=== PATIENT | female | born 1980 | race Caucasian/White ===

== ENCOUNTER → 2017-09-09 | Outpatient (CLI) | payer BC ==
--- NOTE | 2017-09-09 21:33 | MR ---
EXAMINATION TYPE: MR lumbar spine wo con DATE OF EXAM: 09/09/2017 COMPARISON: NONE HISTORY: LBP, LLE radiculopathy x 3 months TECHNIQUE: Multiplanar, multisequence images of the lumbar spine were acquired. L1-L2: Normal disc appearance without desiccation. No herniation, protrusion or disc bulging. No ca nal stenosis is present. Foramina are patent bilaterally. L2-L3: Normal disc appearance without desiccation. No herniation, protrusion or disc bulging. No ca nal stenosis is present. Foramina are patent bilaterally. L3-L4: Normal disc appearance without desiccation. No herniation, protrusion or disc bulging. No ca nal stenosis is present. Foramina are patent bilaterally. L4-L5: Facet arthropathy with hypertrophy of the ligamentum flavum is present causing some encroachme nt on the right lateral recess is present, there is a small focus of intermediate signal on T1-weight ed images, increased signal centrally with peripheral low signal on T2-weighted sequences measuring a pproximately 7 mm extending medially from the facet on the left causing some mass effect on the later al aspect of the thecal sac and possibly the left L4 nerve root. L5-S1: Facet arthropathy, some hypertrophic change may encroach on the foramina. No significant centr al stenosis or disc herniation. Lumbar segments are intact. No paraspinal masses are identified. Conus medullaris has a normal appe arance. Lumbar vertebral bodies show preserved height and alignment. Minimal spondylosis is present. IMPRESSION: Facet arthropathy with probable synovial cyst on the left at L4-5 causing mass effect as described, c orrelate for left L4 radiculopathy.
== END | disposition home or self-care (01) ==
LOC: RADMRIMAIN 20:07
PROVIDERS: ATTEND Family Medicine
DX: M46.96 Unspecified inflammatory spondylopathy, lumbar region (principal)
CPT/HCPCS: 72148

== ENCOUNTER → 2020-03-20 | Outpatient (CLI) | payer BC ==
[2020-03-20 14:33] VITALS: BP 112/67; PULSE 73; RESP 16; TEMP 98.3; BMI 41.5
--- NOTE | 2020-03-20 14:54 | P.HPBAR ---
Bariatric H&P - History & Physicial H&P Date: 03/20/20 History & Physicial: Visit/CC: Initial Visit Patient initial contact: Initial weight: 102.058 kg Initial weight in pounds: 225.00 Height: 5 ft 1.75 in Initial BMI: 41.5 Last weight: Current weight: 102.058 kg Current weight in pounds: 225.00 Current BMI: 41.5 [place] body weight (based on NIH guidelines): 49.328 kg Excess body weight loss: 0.0% The patient is a 39 year-old F who presents for Bariatric Assessment. [facility] [place] Past history of smoking DATE OF SERVICE: 03/20/2020 REASON FOR CONSULTATION: Initial bariatric evaluation. HISTORY OF PRESENT ILLNESS: Lexii Hunter is a 40-year-old female who comes with lifelong morbid obesity. She comes in looking into the sleeve gastrectomy. She has tried Adipex, Keto for weight loss. She cannot exercise due to her back pain of L4 to L5 with compression. She can only do walking. She used to lift weights. She is supposed to have a fusion for her neck. She has cysts along her spine. She has lost 40 to 50 pounds with Keto diet. Her highest weight is at present. She has hip pain bilaterally. She denies knee problems. She has both ankle and foot pain. She still has her gallbladder. She has gastroesophageal reflux disease and takes [id number] prilosec for gastroesophageal reflux disease. She can miss a few days of her omeprazole without problems. She denies stomach or esophageal cancer. No reports of chronic diarrhea. She had deep venous thrombosis in the left arm from control. She denies easy bruising or bleeding. When she had her son, she had a stroke when he was born. She was tested for hypercoagulopathy disorder. She denies surgeries to the abdomen. At height of 5 feet 1.75 inches, her ideal body weight is 131 pounds. She comes in 225 pounds. Her body mass index is 41.5 She is 94 pounds overweight. PAST MEDICAL HISTORY: 1. Morbid obesity due to excess calories 2. Body mass index of 41.5, initial 3. Osteoarthritis of the ankle. 4. Osteoarthritis of the lower back. 5. Depressive disorder 6. Gastroesophageal reflux disease 7. Past deep venous thrombosis of the arm 8. Transient ischemic attack 9. Generalized anxiety disorder 10. Depressive disorder PAST SURGICAL HISTORY: 1. Uterine ablation 2. Carpal tunnel surgery 3. Denies abdominal surgery HOME MEDICATIONS: Home Medications Medication Instructions Recorded Confirmed DULoxetine HCL [Cymbalta] 30 mg PO DAILY 04/05/16 04/05/16 Omeprazole [PriLOSEC] 20 mg PO DAILY 04/05/16 04/05/16 Previous Rx's Medication Instructions Recorded Ondansetron HCl [Zofran Oral Soln] 4 mg PO TID #120 ml 04/05/16 ALLERGIES: Allergies Allergy/AdvReac Type Severity Reaction Status Date / Time hydrocodone AdvReac Nausea & Verified 04/05/16 06:48 Vomiting SOCIAL HISTORY: Past tobacco use. FAMILY HISTORY: No family history of ulcerative colitis disease or Crohn's disease. Family history of morbid obesity. No lupus in the family. No reports of stomach or esophageal cancer. REVIEW OF ORGAN SYSTEMS: CONSTITUTIONAL: At height of 5 feet 1.75 inches, her ideal body weight is 131 pounds. She comes in 225 pounds. Her body mass index is 41.5 She is 94 pounds overweight. HEENT: Denies any active troubles with vision or hearing. ENDOCRINE: No diabetes. No hypothyroidism. CARDIOVASCULAR: No past reports of palpitations or heart attacks or chest pain. RESPIRATORY: Has daytime somnolence. No asthma. GASTROINTESTINAL: Denies any bright red blood per rectum. No diarrhea. No constipation. MUSCULOSKELETAL: Has lower back pain and joint pain. Has osteoarthritis of the knees. NEURO: No headaches. No seizure disorders. Past stroke during . PSYCH: Has depression. No suicidal ideation. As anxiety RHEUMATOLOGIC: No lupus. No rheumatoid arthritis. HEMATOLOGIC: Denies any abnormal bleeding or bruising. Past personal history of DVTs. SKIN: No rash. No skin cancer. PHYSICAL EXAM: VITAL SIGNS: Height 5 foot 1.75 inches, weight 225 pounds. BMI 41.5 Vital Signs Temp 98.3 F 03/20/20 14:28 Pulse 73 03/20/20 14:28 Resp 16 03/20/20 14:28 BP 112/67 03/20/20 14:28 Pulse Ox GENERAL: Well-developed in no acute distress. HEENT: No scleral icterus. Extraocular movements grossly intact. Hears conversational speech. No nasal drainage. NECK: Supple without lymphadenopathy. CHEST: Nonlabored respirations with equal bilateral excursions. CARDIOVASCULAR: Regular rate and regular rhythm. Distal 2+ pulses. ABDOMEN: Obese, soft, nontender, nondistended. MUSCULOSKELETAL: No clubbing, cyanosis. NEURO: No focal or lateralizing signs. Cranial nerves 2 through 12 grossly within normal limits. PSYCH: Appropriate affect. Alert and oriented to person, place and time. SKIN: Good skin turgor. Well perfused. ASSESSMENT: 1. Morbid obesity due to excess calories 2. Body mass index of 41.5, initial 3. Osteoarthritis of the ankle. 4. Osteoarthritis of the lower back. 5. Depressive disorder 6. Gastroesophageal reflux disease 7. Past deep venous thrombosis of the arm 8. Transient ischemic attack 9. Generalized anxiety disorder 10. Depressive disorder PLAN: 1. Surgical options including a band, gastric bypass, sleeve gastrectomy were described in detail. Alternatives such as gastric balloon including duodenal switch were described. She is looking into the sleeve gastrectomy. 2. The [place] bariat[facility] surgical collaborative data and outcomes calculator were described with surgical options. 3. Recommend a bariatric metabolic panel to evaluate for micro- including macronutrient deficiencies. 4. For history of daytime somnolence, recommend evaluation and treatment for sleep apnea. 5. Dietary surveillance and counseling was reviewed. Increased protein intake over 65 grams daily advised. 6. Will need cardiac risk assessment. 7. Recommend medical risk assessment. 8. Psych assessment per insurance guidelines. 9. Recommend upper endoscopy. 10. Recommend 12-lead EKG. Thank you for this consultation. Past Medical History Past Medical History: No Reported History Additional Past Medical History / Comment(s): HX OF BLOOD CLOT IN ARM History of Any Multi-Drug Resistant Organisms: None Reported Past Surgical History: Uterine Ablation Additional Past Surgical History / Comment(s): CARPAL TUNNEL Smoking Status: Never smoker Surgical - Exam Vital Signs Temp Pulse Resp BP 98.3 F 73 16 112/67 03/20/20 14:28 03/20/20 14:28 03/20/20 14:28 03/20/20 14:28 Bariatric Checklist Checklist: Plan: Checklist: EGD: 1. Hiatal hernia: 2. H. Pylori: HgbA1c: Vitamin D: Smoking: Never smoker Primary care physician referral: Dr. Chu Psychiatry clearance: Cardiology clearance: Sleep study: Diet journal: VTE risk score: VTE risk level: Rehab needs at discharge:
== END | disposition home or self-care (01) ==
LOC: BARWHC3 13:50
PROVIDERS: ATTEND Surgery Plastic and Reconstructive Surgery
DX: E66.01 Morbid (severe) obesity due to excess calories (principal); F32.9 Major depressive disorder, single episode, unspecified; K21.9 Gastro-esophageal reflux disease without esophagitis; M19.079 Primary osteoarthritis, unspecified ankle and foot; Z86.73 Personal history of transient ischemic attack (TIA), and cerebral infarction without residual deficits; F41.9 Anxiety disorder, unspecified; M47.819 Spondylosis without myelopathy or radiculopathy, site unspecified
CPT/HCPCS: 99211

== ENCOUNTER → 2020-03-21 | Outpatient (CLI) | payer BC ==
[2020-03-21 10:34] LABS: HCT 42.2 % (34.0-46.0); HGB 13.8 gm/dL (11.4-16.0); MCH 29.8 pg (25.0-35.0); MCHC 32.7 g/dL (31.0-37.0); MCV 91.1 fL (80.0-100.0); Mean Platelet Volume 6.9; Platelet Count 262 k/uL (150-450); RBC 4.63 m/uL (3.80-5.40); RDW 12.7 % (11.5-15.5); WBC 8.2 k/uL (3.8-10.6)
[2020-03-21 10:47] LABS: African American GFR (CKD) >90 (>60 ml/min/1.73 sqM); Albumin 4.5 g/dL (3.5-5.0); Anion Gap 10 mmol/L; Blood Urea Nitrogen 10 mg/dL (7-17); Calcium 9.2 mg/dL (8.4-10.2); Carbon Dioxide 24 mmol/L (22-30); Chloride 104 mmol/L (98-107); Cholesterol 199 mg/dL (<200); Glucose 83 mg/dL (74-99); Non-African American GFR(CKD) >90 (>60 ml/min/1.73 sqM); Phosphorus 3.3 mg/dL (2.5-4.5); Potassium 4.5 mmol/L (3.5-5.1); Sodium 138 mmol/L (137-145); Total Bilirubin 0.5 mg/dL (0.2-1.3); Total Protein 7.6 g/dL (6.3-8.2); Triglycerides 167 mg/dL (<150)
[2020-03-21 10:48] LABS: ALT 22 U/L (4-34); AST 23 U/L (14-36); Alkaline Phosphatase 66 U/L (38-126); HDL Cholesterol 61 mg/dL (40-60); LDL Cholesterol,Calculated 105 mg/dL (0-99); Magnesium 1.8 mg/dL (1.6-2.3)
[2020-03-21 11:00] LABS: Partial Thromboplastin Time 25.3 sec (22.0-30.0); Prothrombin Time 10.2 sec (9.0-12.0)
[2020-03-21 16:48] LABS: % Iron Saturation 29.81 (12.00-45.00)
[2020-03-21 21:34] LABS: Hemoglobin A1C 5.7 % (4.0-6.0)
[2020-03-22 12:13] LABS: Ferritin 253.8 ng/mL (10.0-291.0)
[2020-03-22 13:18] LABS: Zinc, Serum 102 ug/dL (60-130)
[2020-03-22 13:24] LABS: Folate, Serum 21.3 ng/mL
[2020-03-25 08:46] LABS: Vitamin A 52 ug/dL (38-106)
[2020-03-25 11:29] LABS: Vit B1(Thiamine) 67 ug/L (38-122)
[2020-03-26 19:47] LABS: Selenium 113 mcg/L (63-160)
== END | disposition home or self-care (01) ==
LOC: LABPAT 08:43
PROVIDERS: ATTEND Surgery Plastic and Reconstructive Surgery
DX: E21.1 Secondary hyperparathyroidism, not elsewhere classified (principal); D50.9 Iron deficiency anemia, unspecified; K90.9 Intestinal malabsorption, unspecified; E55.9 Vitamin D deficiency, unspecified; K74.1 Hepatic sclerosis; N19 Unspecified kidney failure; K50.90 Crohn's disease, unspecified, without complications; Z01.810 Encounter for preprocedural cardiovascular examination
CPT/HCPCS: 80053; 80061; 82306; 82525; 82607; 82728; 82746; 83036; 83540; 83550; 83735; 83970; 84100; 84134; 84255; 84425; 84443; 84590; 84630; 85027; 85610; 85730; 93005

== ENCOUNTER 2020-05-29 07:44 | Day surgery (SDC) | payer BC ==
[2020-05-24 10:04] VITALS: BMI 38.9
[~2020-05-29 07:44] MED LIST: LACTATED RINGERS 1,000 ML IV SCH
[2020-05-29 08:13] VITALS: RESP 16; TEMP 98.4
[2020-05-29] MEDS ORDERED: LIDOCAINE 1% (10MG/ML) FOR IV START INTRADERMA ONE (08:25)
--- NOTE | 2020-05-29 08:49 | P.GSHP ---
History of Present Illness H&P Date: 05/29/20 CHIEF COMPLAINT: GERD HISTORY OF PRESENT ILLNESS: The patient is a 40-year-old female who presents reports gastroesophageal reflux disease. Upper endoscopy was offered for further evaluation and management. PAST MEDICAL HISTORY: Please see list. PAST SURGICAL HISTORY: Please see list. MEDICATIONS: Please see list. ALLERGIES: Please see list. SOCIAL HISTORY: No illicit drug use FAMILY HISTORY: No reports of Crohn disease or ulcerative colitis. REVIEW OF ORGAN SYSTEMS: CONSTITUTIONAL: No reports of fevers or chills. GI: Denies any blood in stools or constipation. PHYSICAL EXAM: VITAL SIGNS: Stable GENERAL: Well-developed and pleasant in no acute distress. HEENT: No scleral icterus. Extraocular movements grossly intact. Moist buccal mucosa. NECK: Supple without lymphadenopathy. CHEST: Unlabored respirations. Equal bilateral excursions. CARDIOVASCULAR: Regular rate and rhythm. Distal 2+ pulses. ABDOMEN: Soft, nondistended. MUSCULOSKELETAL: No clubbing, cyanosis, or edema. ASSESSMENT: 1. Gastroesophageal reflux disease PLAN: 1. Recommend proceeding with an upper endoscopy Past Medical History Past Medical History: GERD/Reflux Additional Past Medical History / Comment(s): HX OF BLOOD CLOT IN Left ARM- states r/t control History of Any Multi-Drug Resistant Organisms: None Reported Past Surgical History: Back Surgery, Uterine Ablation Additional Past Surgical History / Comment(s): CARPAL TUNNEL,laminectomy l4-l5 Past Anesthesia/Blood Transfusion Reactions: Postoperative Nausea & Vomiting (PONV) Additional Past Anesthesia/Blood Transfusion Reaction / Comment(s): no hx blood transfusion Smoking Status: Former smoker - Past Family History Mother Family Medical History: No Reported History Medications and Allergies Home Medications Medication Instructions Recorded Confirmed Type Omeprazole [PriLOSEC] 20 mg PO DAILY 04/05/16 05/29/20 History Gabapentin 600 mg PO HS 05/24/20 05/29/20 History Gabapentin [Neurontin] 100 mg PO QAM 05/24/20 05/29/20 History ISOtretinoin [Isotretinoin] 40 mg PO HS 05/24/20 05/29/20 History L-Lysine(Unknown Dose) 1 tab PO DAILY 05/24/20 05/24/20 History Liraglutide [Saxenda] 3 mg SQ DAILY 05/24/20 05/29/20 History Multivitamins, Thera [Multivitamin 1 tab PO DAILY 05/24/20 05/29/20 History (formulary)] Vitamin C(Unk Dose) 1 tab PO DAILY 05/24/20 05/29/20 History Vortioxetine Hydrobromide 10 mg PO QAM 05/24/20 05/29/20 History [Trintellix] Allergies Allergy/AdvReac Type Severity Reaction Status Date / Time hydrocodone AdvReac Nausea & Verified 05/29/20 08:14 Vomiting Surgical - Exam Vital Signs Temp Pulse Resp BP Pulse Ox 98.4 F 81 16 132/77 99 05/29/20 08:09 05/29/20 08:09 05/29/20 08:09 05/29/20 08:09 05/29/20 08:09
[2020-05-29] MEDS ORDERED: PROPOFOL 10 MG/ML 20 ML VIAL IV ONE (08:56)
--- NOTE | 2020-05-29 09:19 | P.PCN ---
Date of Procedure: 05/29/20 Description of Procedure: PREOPERATIVE DIAGNOSIS: Gastroesophageal reflux disease. Morbid obesity. POSTOPERATIVE DIAGNOSIS: Morbid obesity. Gastritis. Gastroesophageal reflux disease. Gastric ulcers OPERATION: Esophagogastroduodenoscopy with biopsies along antrum. SURGEON: Roseanna Mojica MD ANESTHESIA: MAC. INDICATIONS: The patient is a 40-year-old female who presents with a history of reflux disease. Benefits and risks of the procedure were described. Informed consent was obtained. DESCRIPTION: The patient was brought into the endoscopy suite and laid in the left lateral decubitus position. An Olympus gastroscope was passed along the posterior oropharynx down to the distal esophagus where the squamocolumnar junction was encountered at 35 cm from the incisors. The stomach was entered and no bile reflux was found. Additional findings are listed below. Biopsies with cold forceps were obtained of the antrum. The first through third portion of the duodenum was examined and unremarkable. Retroflexion of the scope confirmed Hill grade 2 lower esophageal valve. The squamocolumnar junction demonstrated LA grade B erosive esophagitis. The stomach was desufflated. The patient tolerated the procedure well. FINDINGS: Squamocolumnar junction 35 cm from the incisors. Diaphragmatic hiatus at 35 cm. Hill grade 2 lower esophageal valve. LA grade B erosive esophagitis. No active duodenitis. Chronic gastritis with superficial gastric ulcers RECOMMENDATIONS: Upper endoscopy as needed. Increase omeprazole to 40 mg daily Plan - Discharge Summary Discharge Rx Participant: No New Discharge Prescriptions: New Omeprazole [PriLOSEC] 40 mg PO DAILY #30 cap Continue Multivitamins, Thera [Multivitamin (formulary)] 1 tab PO DAILY ISOtretinoin [Isotretinoin] 40 mg PO HS Gabapentin [Neurontin] 100 mg PO QAM Gabapentin 600 mg PO HS Vortioxetine Hydrobromide [Trintellix] 10 mg PO QAM Liraglutide [Saxenda] 3 mg SQ DAILY Vitamin C(Unk Dose) 1 tab PO DAILY L-Lysine(Unknown Dose) 1 tab PO DAILY Discontinued Omeprazole [PriLOSEC] 20 mg PO DAILY Discharge Medication List Gabapentin 600 mg PO HS 05/24/20 [History] Gabapentin [Neurontin] 100 mg PO QAM 05/24/20 [History] ISOtretinoin [Isotretinoin] 40 mg PO HS 05/24/20 [History] L-Lysine(Unknown Dose) 1 tab PO DAILY 05/24/20 [History] Liraglutide [Saxenda] 3 mg SQ DAILY 05/24/20 [History] Multivitamins, Thera [Multivitamin (formulary)] 1 tab PO DAILY 05/24/20 [History] Vitamin C(Unk Dose) 1 tab PO DAILY 05/24/20 [History] Vortioxetine Hydrobromide [Trintellix] 10 mg PO QAM 05/24/20 [History] Omeprazole [PriLOSEC] 40 mg PO DAILY #30 cap 05/29/20 [Rx] Follow up Appointment(s)/Referral(s): Roseanna Mojica MD [STAFF PHYSICIAN] [facility] [place] [facility] [place] - 06/12/20 Patient Instructions/Handouts: *Surgery [facility] - (Anesthesia) Endoscopy Discharge Instructions, Upper Endoscopy (GEN) Discharge Disposition: HOME SELF-CARE
[2020-05-29 09:21] VITALS: BP 103/64; PULSE 72
== END 2020-05-29 09:43 | disposition home or self-care (01) ==
LOC: ORWHC2ENDO 07:44
PROVIDERS: ATTEND Surgery Plastic and Reconstructive Surgery
DX: K25.9 Gastric ulcer, unspecified as acute or chronic, without hemorrhage or perforation (principal); K29.50 Unspecified chronic gastritis without bleeding; K21.9 Gastro-esophageal reflux disease without esophagitis; E66.01 Morbid (severe) obesity due to excess calories; Z68.39 Body mass index [BMI] 39.0-39.9, adult; F32.9 Major depressive disorder, single episode, unspecified; Z86.718 Personal history of other venous thrombosis and embolism; Z98.890 Other specified postprocedural states; Z87.891 Personal history of nicotine dependence; Z79.84 Long term (current) use of oral hypoglycemic drugs; Z79.899 Other long term (current) drug therapy; Z88.5 Allergy status to narcotic agent; K22.10 Ulcer of esophagus without bleeding
CPT/HCPCS: 81025; 88305; 43239; J2704

== ENCOUNTER → 2020-08-05 | Outpatient (CLI) | payer BC ==
[2020-08-05 13:27] VITALS: BMI 39.4
== END | disposition home or self-care (01) ==
LOC: BARWHC3 08:49
PROVIDERS: ATTEND Surgery Plastic and Reconstructive Surgery
DX: E66.01 Morbid (severe) obesity due to excess calories (principal); Z71.3 Dietary counseling and surveillance
CPT/HCPCS: 97804

== ENCOUNTER → 2020-08-28 | Outpatient (CLI) | payer BC ==
[2020-08-28 15:53] VITALS: BP 119/85; PULSE 81; RESP 16; TEMP 98.8
--- NOTE | 2020-08-28 16:02 | P.PN ---
Subjective Progress Note Date: 08/28/20 DATE OF SERVICE: 08/28/2020 CHIEF COMPLAINT: Morbid obesity HISTORY OF PRESENT ILLNESS: Lexii Hunter is a 40-year-old female who comes with lifelong morbid obesity. She comes in looking into the sleeve gastrectomy. She has completed a medical supervised weight loss. As a result of her morbid obesity, she has developed comorbidities including osteoarthritis of the ankle, lower back as well as depressive disorder. She does report new left shoulder pain where she has torn cartilage and is also pending surgery. As a result of her morbid obesity, she is looking into permanent solutions with surgical weight loss. At height of 5 feet 1.75 inches, her ideal body weight is 131 pounds. She comes in 213 pounds from 225 pounds, 5 months ago. She has lost 12 pounds from medical supervised weight loss. Her body mass index was 41.5 She was 94 pounds overweight. PAST MEDICAL HISTORY: 1. Morbid obesity due to excess calories 2. Body mass index of 41.5, initial 3. Osteoarthritis of the ankle. 4. Osteoarthritis of the lower back. 5. Depressive disorder 6. Gastroesophageal reflux disease 7. Past deep venous thrombosis of the arm 8. Transient ischemic attack 9. Generalized anxiety disorder 10. Depressive disorder PAST SURGICAL HISTORY: 1. Uterine ablation 2. Carpal tunnel surgery 3. Denies abdominal surgery HOME MEDICATIONS: Home Medications Medication Instructions Recorded Confirmed DULoxetine HCL [Cymbalta] 30 mg PO DAILY 04/05/16 04/05/16 Omeprazole [PriLOSEC] 20 mg PO DAILY 04/05/16 04/05/16 Previous Rx's Medication Instructions Recorded Ondansetron HCl [Zofran Oral Soln] 4 mg PO TID #120 ml 04/05/16 ALLERGIES: Allergies Allergy/AdvReac Type Severity Reaction Status Date / Time hydrocodone AdvReac Nausea & Verified 04/05/16 06:48 Vomiting SOCIAL HISTORY: Past tobacco use. FAMILY HISTORY: No family history of ulcerative colitis disease or Crohn's disease. Family history of morbid obesity. No lupus in the family. No reports of stomach or esophageal cancer. REVIEW OF ORGAN SYSTEMS: CONSTITUTIONAL: At height of 5 feet 1.75 inches, her ideal body weight is 131 pounds. She comes in 225 pounds. Her body mass index is 41.5 She is 94 pounds overweight. HEENT: Denies any active troubles with vision or hearing. ENDOCRINE: No diabetes. No hypothyroidism. CARDIOVASCULAR: No past reports of palpitations or heart attacks or chest pain. RESPIRATORY: Has daytime somnolence. No asthma. GASTROINTESTINAL: Denies any bright red blood per rectum. No diarrhea. No constipation. MUSCULOSKELETAL: Has lower back pain and joint pain. Has osteoarthritis of the knees. NEURO: No headaches. No seizure disorders. Past stroke during . PSYCH: Has depression. No suicidal ideation. As anxiety RHEUMATOLOGIC: No lupus. No rheumatoid arthritis. HEMATOLOGIC: Denies any abnormal bleeding or bruising. Past personal history of DVTs. SKIN: No rash. No skin cancer. PHYSICAL EXAM: VITAL SIGNS: Height 5 foot 1.75 inches, weight 213 pounds. Vital Signs Temp 98.8 F 08/28/20 15:45 Pulse 81 08/28/20 15:45 Resp 16 08/28/20 15:45 BP 119/85 08/28/20 15:45 Pulse Ox GENERAL: Well-developed in no acute distress. HEENT: No scleral icterus. Extraocular movements grossly intact. Hears conversational speech. No nasal drainage. NECK: Supple without lymphadenopathy. CHEST: Nonlabored respirations with equal bilateral excursions. CARDIOVASCULAR: Regular rate and regular rhythm. Distal 2+ pulses. ABDOMEN: Obese, soft, nontender, nondistended. MUSCULOSKELETAL: No clubbing, cyanosis. NEURO: No focal or lateralizing signs. Cranial nerves 2 through 12 grossly within normal limits. PSYCH: Appropriate affect. Alert and oriented to person, place and time. SKIN: Good skin turgor. Well perfused. LABS: Reviewed. Triglycerides mildly elevated 165. Vitamin D level 24.6. EKG: Borderline. EGD FINDINGS: Squamocolumnar junction 35 cm from the incisors. Diaphragmatic hiatus at 35 cm. Hill grade 2 lower esophageal valve. LA grade B erosive esophagitis. No active duodenitis. Chronic gastritis with superficial gastric ulcers Final Pathologic Diagnosis GASTRIC ANTRUM, BIOPSY: Essentially normal gastric mucosa. Helicobacter organisms are not identified on routine H+E stained sections. ASSESSMENT: 1. Morbid obesity due to excess calories 2. Body mass index of 41.5, initial 3. Osteoarthritis of the ankle. 4. Osteoarthritis of the lower back. 5. Depressive disorder 6. Gastroesophageal reflux disease 7. Past deep venous thrombosis of the arm 8. Transient ischemic attack 9. Generalized anxiety disorder 10. Depressive disorder PLAN: 1. Bariatric options between a sleeve, band and a Irwin-en-Y gastric bypass were reviewed in detail. The patient elected for a sleeve gastrectomy. Robotic assisted approach described. 2. The [place] [facility] Data was also reviewed with benefits and risks as described. 3. An 8 page second-generation bariatric consent form was reviewed in detail including potential of bleeding, infection, leaks, adequate weight loss, nutritional deficiencies which the patient demonstrated understanding of the risks. 4. A 2 week high-protein low caloric 800 kcal diet described to address hepatomegaly. 5. Preoperative labs including complete metabolic panel and CBC with type and screen recommended. 6. DVT prophylaxis per [place] [facility]ariat[facility] collaborative. 7. Antibiotic prophylaxis. 8. Inpatient hospitalization anticipated for more than 2 nights. 9. All questions and concerns were addressed with the patient. 10. She is at elevated risk for perioperative complications for any additional surgeries that may occur within 30 days of her index operation as she is due for surgery of the left shoulder. 11. Overall, patient has expressed understanding of bariatric care including postoperative diet and commitment of lifestyle. Patient should benefit from surgical intervention for correction of her morbid obesity. Objective - Vital Signs Vital signs: Vital Signs Temp 98.8 F 08/28/20 15:45 Pulse 81 08/28/20 15:45 Resp 16 08/28/20 15:45 BP 119/85 08/28/20 15:45 Pulse Ox
== END | disposition home or self-care (01) ==
LOC: BARWHC3 15:20
PROVIDERS: ATTEND Surgery Plastic and Reconstructive Surgery
DX: E66.01 Morbid (severe) obesity due to excess calories (principal); Z68.41 Body mass index [BMI] 40.0-44.9, adult; M19.079 Primary osteoarthritis, unspecified ankle and foot; F32.9 Major depressive disorder, single episode, unspecified; K21.9 Gastro-esophageal reflux disease without esophagitis; Z86.718 Personal history of other venous thrombosis and embolism; G45.9 Transient cerebral ischemic attack, unspecified; F41.9 Anxiety disorder, unspecified; M19.90 Unspecified osteoarthritis, unspecified site
CPT/HCPCS: 99211

== ENCOUNTER → 2020-09-27 | Outpatient (CLI) | payer BC ==
[2020-09-27 10:52] LABS: Basophils % (A) 1 %; Eosinophils # (A) 0.1 k/uL (0-0.7); Eosinophils % (A) 1 %; HCT 45.1 % (34.0-46.0); HGB 14.6 gm/dL (11.4-16.0); Lymphocytes # (A) 2.6 k/uL (1.0-4.8); Lymphocytes % (A) 35 %; MCH 28.6 pg (25.0-35.0); MCHC 32.4 g/dL (31.0-37.0); MCV 88.4 fL (80.0-100.0); Mean Platelet Volume 6.8; Monocytes # (A) 0.5 k/uL (0-1.0); Monocytes % (A) 6 %; Neutrophils # (A) 4.2 k/uL (1.3-7.7); Neutrophils % (A) 55 %; Platelet Count 272 k/uL (150-450); RDW 12.9 % (11.5-15.5); WBC 7.6 k/uL (3.8-10.6)
[2020-09-27 19:31] LABS: African American GFR (CKD) 105.4 (60.0-200.0); Albumin 5.3 g/dL (3.80-4.90); Albumin/Globulin Ratio 1.96 (1.60-3.17); Anion Gap 8.6 mmol/L (4.00-12.00); BUN/Creat Ratio 21.25 Ratio (12.00-20.00); Calcium 10.2 mg/dL (8.7-10.3); Carbon Dioxide 24.4 mmol/L (21.6-31.8); Globulin 2.7 g/dL (1.6-3.3); Non-African American GFR(CKD) 90.9 (60.0-200.0); Potassium 4.6 mmol/L (3.5-5.5); Total Bilirubin 0.6 mg/dL (0.3-1.2)
== END | disposition home or self-care (01) ==
LOC: LABWHC1 10:15
PROVIDERS: ATTEND Surgery Plastic and Reconstructive Surgery
DX: Z01.818 Encounter for other preprocedural examination (principal)
CPT/HCPCS: 36415; 80053; 85025; 93005

== ENCOUNTER 2020-10-07 10:28 | Inpatient (IN) | payer BC ==
--- NOTE | 2020-10-06 20:44 | P.GSHP ---
History of Present Illness H&P Date: 10/07/20 CHIEF COMPLAINT: Morbid obesity HISTORY OF PRESENT ILLNESS: Lexii Hunter is a 40-year-old female who comes with lifelong morbid obesity. She comes in looking into the sleeve gastrectomy. She has completed a medical supervised weight loss. As a result of her morbid obesity, she has developed comorbidities including osteoarthritis of the ankle, lower back as well as depressive disorder. She does report new left shoulder pain where she has torn cartilage and is also pending surgery. As a result of her morbid obesity, she is looking into permanent solutions with surgical weight loss. At height of 5 feet 1.75 inches, her ideal body weight is 131 pounds. She comes in 213 pounds from 225 pounds, 5 months ago. She has lost 12 pounds from medical supervised weight loss. Her body mass index was 41.5 She was 94 pounds overweight. PAST MEDICAL HISTORY: 1. Morbid obesity due to excess calories 2. Body mass index of 41.5, initial 3. Osteoarthritis of the ankle. 4. Osteoarthritis of the lower back. 5. Depressive disorder 6. Gastroesophageal reflux disease 7. Past deep venous thrombosis of the arm 8. Transient ischemic attack 9. Generalized anxiety disorder 10. Depressive disorder PAST SURGICAL HISTORY: 1. Uterine ablation 2. Carpal tunnel surgery 3. Denies abdominal surgery HOME MEDICATIONS: Home Medications Medication Instructions Recorded Confirmed DULoxetine HCL [Cymbalta] 30 mg PO DAILY 04/05/16 04/05/16 Omeprazole [PriLOSEC] 20 mg PO DAILY 04/05/16 04/05/16 Previous Rx's Medication Instructions Recorded Ondansetron HCl [Zofran Oral Soln] 4 mg PO TID #120 ml 04/05/16 ALLERGIES: Allergies Allergy/AdvReac Type Severity Reaction Status Date / Time hydrocodone AdvReac Nausea & Verified 04/05/16 06:48 Vomiting SOCIAL HISTORY: Past tobacco use. FAMILY HISTORY: No family history of ulcerative colitis disease or Crohn's disease. Family history of morbid obesity. No lupus in the family. No reports of stomach or esophageal cancer. REVIEW OF ORGAN SYSTEMS: CONSTITUTIONAL: At height of 5 feet 1.75 inches, her ideal body weight is 131 pounds. She comes in 225 pounds. Her body mass index is 41.5 She is 94 pounds overweight. HEENT: Denies any active troubles with vision or hearing. ENDOCRINE: No diabetes. No hypothyroidism. CARDIOVASCULAR: No past reports of palpitations or heart attacks or chest pain. RESPIRATORY: Has daytime somnolence. No asthma. GASTROINTESTINAL: Denies any bright red blood per rectum. No diarrhea. No constipation. MUSCULOSKELETAL: Has lower back pain and joint pain. Has osteoarthritis of the knees. NEURO: No headaches. No seizure disorders. Past stroke during . PSYCH: Has depression. No suicidal ideation. As anxiety RHEUMATOLOGIC: No lupus. No rheumatoid arthritis. HEMATOLOGIC: Denies any abnormal bleeding or bruising. Past personal history of DVTs. SKIN: No rash. No skin cancer. PHYSICAL EXAM: VITAL SIGNS: Height 5 foot 1.75 inches, weight 213 pounds. GENERAL: Well-developed in no acute distress. HEENT: No scleral icterus. Extraocular movements grossly intact. Hears conversational speech. No nasal drainage. NECK: Supple without lymphadenopathy. CHEST: Nonlabored respirations with equal bilateral excursions. CARDIOVASCULAR: Regular rate and regular rhythm. Distal 2+ pulses. ABDOMEN: Obese, soft, nontender, nondistended. MUSCULOSKELETAL: No clubbing, cyanosis. NEURO: No focal or lateralizing signs. Cranial nerves 2 through 12 grossly within normal limits. PSYCH: Appropriate affect. Alert and oriented to person, place and time. SKIN: Good skin turgor. Well perfused. ASSESSMENT: 1. Morbid obesity due to excess calories 2. Body mass index of 41.5, initial 3. Osteoarthritis of the ankle. 4. Osteoarthritis of the lower back. 5. Depressive disorder 6. Gastroesophageal reflux disease 7. Past deep venous thrombosis of the arm 8. Transient ischemic attack 9. Generalized anxiety disorder 10. Depressive disorder PLAN: 1. Bariatric options between a sleeve, band and a Irwin-en-Y gastric bypass were reviewed in detail. The patient elected for a sleeve gastrectomy. Robotic assisted approach described. 2. The [place] [facility] Data was also reviewed with benefits and risks as described. 3. An 8 page second-generation bariatric consent form was reviewed in detail including potential of bleeding, infection, leaks, adequate weight loss, nutritional deficiencies which the patient demonstrated understanding of the risks. 4. A 2 week high-protein low caloric 800 kcal diet described to address hepatomegaly. 5. Preoperative labs including complete metabolic panel and CBC with type and screen recommended. 6. DVT prophylaxis per [place] [facility]. 7. Antibiotic prophylaxis. 8. Inpatient hospitalization anticipated for more than 2 nights. 9. All questions and concerns were addressed with the patient. 10. She is at elevated risk for perioperative complications for any additional surgeries that may occur within 30 days of her index operation as she is due for surgery of the left shoulder. 11. Overall, patient has expressed understanding of bariatric care including postoperative diet and commitment of lifestyle. Patient should benefit from izabela gical intervention for correction of her morbid obesity. Past Medical History Past Medical History: GERD/Reflux Additional Past Medical History / Comment(s): HX OF BLOOD CLOT IN Left ARM- states r/t control History of Any Multi-Drug Resistant Organisms: None Reported Past Surgical History: Back Surgery, Uterine Ablation Additional Past Surgical History / Comment(s): CARPAL TUNNEL,laminectomy l4-l5. EGD Past Anesthesia/Blood Transfusion Reactions: Postoperative Nausea & Vomiting (PONV) Additional Past Anesthesia/Blood Transfusion Reaction / Comment(s): no hx blood transfusion Smoking Status: Former smoker - Past Family History Mother Family Medical History: No Reported History Medications and Allergies Home Medications Medication Instructions Recorded Confirmed Type Gabapentin 600 mg PO HS 05/24/20 10/01/20 History Gabapentin [Neurontin] 100 mg PO QAM 05/24/20 10/01/20 History Multivitamins, Thera [Multivitamin 1 tab PO DAILY 05/24/20 10/01/20 History (formulary)] Vortioxetine Hydrobromide 10 mg PO QAM 05/24/20 10/01/20 History [Trintellix] Omeprazole [PriLOSEC] 40 mg PO DAILY #30 cap 05/29/20 10/01/20 Rx ALPRAZolam [Xanax] 0.5 mg PO DAILY PRN 10/01/20 10/01/20 History Ascorbic Acid [Vitamin C] 1,000 mg PO DAILY 10/01/20 10/01/20 History Lysine HCl [l-Lysine] 1,000 mg PO DAILY 10/01/20 10/01/20 History Allergies Allergy/AdvReac Type Severity Reaction Status Date / Time hydrocodone AdvReac Nausea & Verified 10/01/20 10:57 Vomiting
[~2020-10-07 10:28] MED LIST changes: +ACETAMINOPHEN TAB 500 MG TAB PO STA; +CHLORHEXIDINE GLUCONATE 15 ML CUP MUCOUS MEM PRN; +DEXAMETHASONE SOD PHOSPHATE 4 MG/ML 1 ML VIAL IV ONE; +ENOXAPARIN 40 MG/0.4 ML SYRINGE SQ PRN; -LACTATED RINGERS 1,000 ML IV SCH; +MIDAZOLAM 2 MG/2 ML VIAL IV PRN; +PANTOPRAZOLE 40 MG/10 ML VIAL IV PRN; +SCOPOLAMINE 1.5MG/72HR PATCH TRANSDERM ONE; +SCOPOLAMINE 1.5MG/72HR PATCH TRANSDERM STA; +fentaNYL (PF) 50 MCG/ML 2 ML AMP IV PRN
[2020-10-07] MEDS ORDERED: ONDANSETRON 4 MG/2 ML VIAL ONE (10:42)
[2020-10-07] MEDS ORDERED: LIDOCAINE 1%-EPI 1:100,000 20 ML VIAL SQ ONE (10:56)
[2020-10-07] MEDS: LACTATED RINGERS 1,000 ML IV SCH (11:07)
[2020-10-07] MEDS ORDERED: LIDOCAINE 1% (10MG/ML) FOR IV START INTRADERMA ONE (11:08)
[2020-10-07] MEDS ORDERED: PROPOFOL 10 MG/ML 20 ML VIAL IV ONE (11:16)
[2020-10-07] MEDS ORDERED: MIDAZOLAM 2 MG/2 ML VIAL ONE (11:16)
[2020-10-07] MEDS ORDERED: LIDOCAINE 1% INJ 10MG/ML (20 ML MDV) ONE (11:16)
[2020-10-07] MEDS ORDERED: NEOSTIGMINE 1 MG/ML 10 ML VIAL ONE (11:16)
[2020-10-07] MEDS ORDERED: ROCURONIUM 10 MG/ML (10 ML VIAL) IV ONE (11:16)
[2020-10-07] MEDS ORDERED: fentaNYL (PF) 50 MCG/ML 2 ML AMP ONE (11:16)
[2020-10-07] MEDS ORDERED: HYDROmorphone (PF) 1 MG/ML ONE (11:16)
[2020-10-07] MEDS ORDERED: SUCCINYLCHOLINE CHLORIDE 100 MG/5 ML SYR IV ONE (11:16)
[2020-10-07] MEDS ORDERED: GLYCOPYRROLATE 0.2 MG/ML 2 ML VIAL ONE (11:16)
[2020-10-07 11:29] LABS: ALT 32 U/L (4-34); AST 33 U/L (14-36); African American GFR (CKD) >90 (>60 ml/min/1.73 sqM); Albumin 5.1 g/dL (3.5-5.0); Alkaline Phosphatase 78 U/L (38-126); Anion Gap 12 mmol/L; Blood Urea Nitrogen 13 mg/dL (7-17); Calcium 9.7 mg/dL (8.4-10.2); Carbon Dioxide 23 mmol/L (22-30); Chloride 103 mmol/L (98-107); Glucose 86 mg/dL (74-99); Non-African American GFR(CKD) >90 (>60 ml/min/1.73 sqM); Potassium 4.2 mmol/L (3.5-5.1); Sodium 138 mmol/L (137-145); Total Bilirubin 0.9 mg/dL (0.2-1.3); Total Protein 8.7 g/dL (6.3-8.2)
[2020-10-07] MEDS ORDERED: LACTATED RINGERS 1,000 ML IV ONE (12:54)
[2020-10-07] MEDS ORDERED: METOCLOPRAMIDE 5 MG/ML 2 ML VIAL IVP ONE (13:11)
[2020-10-07] MEDS: PROMETHAZINE INJ 25 MG/ML 1 ML VIAL IVPB ONE ×2 (13:17→14:24)
[2020-10-07] MEDS ORDERED: DEXAMETHASONE SOD PHOSPHATE 4 MG/ML 1 ML VIAL IV ONE (13:22)
[2020-10-07] MEDS ORDERED: ALPRAZolam 0.5 MG TAB PO PRN (13:28)
[2020-10-07] MEDS ORDERED: TRIMETHOBENZAMIDE 100 MG/ML 2 ML VIAL IM PRN (13:31)
[2020-10-07] MEDS ORDERED: NALOXONE 0.4 MG/ML 1 ML VIAL IV PRN (13:31)
[2020-10-07] MEDS ORDERED: diphenhydrAMINE 50 MG/ML 1 ML VIAL IVP PRN (13:31)
[2020-10-07] MEDS ORDERED: DEXAMETHASONE SOD PHOSPHATE 10 MG/ML 1 ML VIAL IV PRN (13:31)
--- NOTE | 2020-10-07 14:39 | P.OP ---
Date of Procedure: 10/07/20 Description of Procedure: SURGEON: ALLIE ASH MD PREOPERATIVE DIAGNOSES: 1. Morbid obesity due to excess calories 2. Body mass index of 41.5, initial 3. Osteoarthritis of the ankle. 4. Osteoarthritis of the lower back. 5. Depressive disorder 6. Gastroesophageal reflux disease 7. Past deep venous thrombosis of the arm 8. Transient ischemic attack 9. Generalized anxiety disorder 10. Depressive disorder POSTOPERATIVE DIAGNOSES: 1. Morbid obesity due to excess calories 2. Body mass index of 41.5, initial 3. Osteoarthritis of the ankle. 4. Osteoarthritis of the lower back. 5. Depressive disorder 6. Gastroesophageal reflux disease 7. Past deep venous thrombosis of the arm 8. Transient ischemic attack 9. Generalized anxiety disorder 10. Depressive disorder OPERATION: 1. Robotic assisted daVinci Xi laparoscopic sleeve gastrectomy with 40-Hebrew bougie, multiport. 2. Intraoperative esophagogastroduodenoscopy. ANESTHESIA: Gen. local anesthetic ESTIMATED BLOOD LOSS: 5 mL SPECIMENS REMOVED: Sleeve gastrectomy COMPLICATIONS: None. FINDINGS: 1. Negative intraoperative esophagogastrojejunoscopy leak test. 2. No hepatomegaly and no large hiatus hernia. 3. Total of 6 staplers used including 1 - 60 mm green robot damon and 5 - 60 mm blue robot loads used to create the gastric sleeve. 4. Sleeve gastrectomy, 30 x 6 cm INDICATIONS: Lexii Hunter is a 40-year-old female who comes with lifelong morbid obesity. She comes in looking into the sleeve gastrectomy. She has completed a medical supervised weight loss. As a result of her morbid obesity, she has developed comorbidities including osteoarthritis of the ankle, lower back as well as depressive disorder. As a result of her morbid obesity, she is looking into permanent solutions with surgical weight loss. At height of 5 feet 1.75 inches, her ideal body weight is 131 pounds. She comes in 203 pounds from 213 pounds, 5 months ago. She has lost 10 pounds from medical supervised weight loss. Her body mass index was 41.5 She was 94 pounds overweight. All surgical options for morbid obesity had been described using the [place] [facility] collaborative comorbidity resolution including complication risk score. A second-generation bariatric consent form was described in detail including the possibility of protein malnutrition, leaks, gastric stricture, venous thrombosis, gastroesophageal reflux disease, need for further surgery for which she demonstrated understanding. Benefits and risks of the procedure were described at length. Informed consent was obtained. DESCRIPTION: The patient was brought into the operating room theater. Preoperatively she had received Lovenox subcutaneously for DVT prophylaxis. Additionally she had Peridex oral solution as an oral decontaminant. After general induction, the abdomen was prepped and draped in standard sterile fashion. An Ioban draping was placed along the abdomen. A robotic da J Carlos Xi system was prepped and primed. At 13 cm from the xiphoid, proposed port sites were marked with indelible marker along the anterior axillary line bilaterally, mid axillary line bilaterally with each ports were marked 10 to 15 cm from each other. The graduate assistant port was marked along the left lateral abdominal wall. The robotic stapler port was marked for the right midclavicular line. A 5 mm 0 degrees laparoscopic trocar entry was performed along the left upper quadrant. The abdomen was insufflated to 15 mmHg pressure was tolerated well. Diagnostic laparoscopy demonstrated no injury to bowel, viscera, or mesentery. No evidence of large hiatus hernia was identified. The liver edge was sharp consistent with 2 week low-carb high-protein diet. The ports were readjusted at 12 cm from the xiphoid to avoid additional adhesions. A 8 mm port was placed along the left upper abdominal wall after exchanging the 5 mm port. A separate 8 mm port was placed along the left lateral abdominal wall. Please note that the ports were placed at least 20 cm away from the target anatomy. Care was taken to check each robotic arms were safely away from collision with the bed or the patient. At the epigastrium, a medium sized Prerna liver retractor was placed under direct visualization with the Iron Change Analyst placed under the right shoulder of the patient. Next, 12-mm robot stapler port was placed along the right upper quadrant. The camera 8-mm port was maintained along the epigastrium. The patient was repositioned in reverse Trendelenburg position at 21-degrees after lowering the bed. The robot was docked along the left side of the patient. Using a grasper for arm 4, a vessel sealer for arm 3, including grasper for arm 1, the robotic system was docked and primed as described. Instruments were interchanged by the graduate assistant for stapler loads. The camera was placed at 30-degrees down. I had sat at the console. The pylorus was identified and 6 cm proximally along the greater curvature of the stomach, the short gastrics were mobilized upwards to the angle of His using a vessel sealer. Hemostasis was excellent during this portion of the procedure. Next, the upper pole of the stomach was adherent to the left tad, which was gently dissected free using atraumatic grasper. I went to the head of the bed and placed 40-Hebrew blunt bougie into the stomach. The bougie was readjusted by the nurse manager delivery. Robotic stapler green load 60 mm 1 followed by blue 60 mm x 5 loads were used to create the sleeve. Initial firing was across the antrum of the stomach towards the angle of His. The staple line was linear without corkscrewing. The space from the angularis incisura of the sleeve was approximately 4 cm. I then went to the head of the bed to perform the intraoperative esophagogastroduodenoscopy leak test. The bougie was withdrawn. The upper pole of the stomach was bathed using normal saline solution. The scope was withdrawn with careful inspection along the staple line for which no leaks were found along the entire length. Additionally,the sleeve was completely hemostatic wi thout any encroachment along the angularis incisura. Its topology was a soft "J". No stricture was encountered upon placement of the scope. The GI tract was desufflated. The patient tolerated this portion of the procedure well. The scope was completely withdrawn. The robot was undocked. I then rescrubbed into case, whereby the irrigation fluid was aspirated from the abdominal cavity. Tisseel fibrin sealant was placed along the entire staple length. Once dried the Prerna liver retractor was removed. Attention was now brought to removal of the specimen. The distal end of the sleeve gastrectomy specimen was brought out through the 12 mm port at the left upper quadrant. The specimen was gently removed en total. No contamination had occurred during this process. All instruments and pneumoperitoneum including irrigation fluid was removed from the abdominal cavity. The 12 mm port site was closed using 0-Vicryl and Teodoro Rodríguezson and irrigated with diluted hydrogen peroxide. The final incisions were closed using subcuticular interrupted suture of 4-0 Monocryl. Exofin was applied to the skin once the skin had been cleansed. OptiFoam dressing was placed along the stomach extraction site. The sleeve specimen was measured and checked also for leaks which none were found. At the end of the procedure, needle, sponge, and instrument count was verified correct by the surgical orderly. The patient was taken to the postanesthesia care unit in stable condition. She had tolerated the procedure well. Intraoperative films and findings were reviewed with the patient's family.
[2020-10-07] MEDS ORDERED: ONDANSETRON 4 MG/2 ML VIAL IVP ONE (15:05)
[2020-10-07] MEDS ORDERED: diphenhydrAMINE 50 MG/ML 1 ML VIAL IVP ONE (15:40)
[2020-10-07] MEDS ORDERED: KETOROLAC 15 MG/ML 1 ML VIAL IVP ONE (16:30)
[2020-10-07] MEDS ORDERED: HYDROmorphone 0.5 MG/0.5 ML SYRINGE IVP ONE (16:40)
[2020-10-07] MEDS: 0.9% NACL WITH KCL 20 MEQ/L 1,000 ML IV SCH (17:57)
[2020-10-07] MEDS: SIMETHICONE 40 MG/0.6 ML DROPS 2,000 MG/30 ML BOTTLE PO SCH (17:59)
[2020-10-07] MEDS: HYOSCYAMINE ORAL DROPS 1.875 MG/15 ML BOTTLE PO SCH (17:59)
[2020-10-07] MEDS: KETOROLAC 15 MG/ML 1 ML VIAL IVP SCH (17:59)
[2020-10-07] MEDS: METOCLOPRAMIDE 5 MG/ML 2 ML VIAL IVP SCH (18:00)
[2020-10-07] MEDS: MAGNESIUM SULFATE-D5W PMX 1 GM in DEXTROSE/WATER 1 100ML.BAG IVPB SCH ×2 (18:00→20:14)
[2020-10-07] MEDS: DEXAMETHASONE SOD PHOSPHATE 4 MG/ML 1 ML VIAL IV SCH (18:00)
[2020-10-07] MEDS: ACETAMINOPHEN IV (For NPO) 1,000 MG in EMPTY BAG 1 BAG IVPB SCH (18:00)
[2020-10-07] MEDS: ALBUTEROL NEBULIZED 2.5 MG/3 ML INHALATION SCH ×3 (19:45→19:47)
[2020-10-07] MEDS ORDERED: GABAPENTIN 300 MG CAP PO SCH (21:00)
[2020-10-08] MEDS: DEXAMETHASONE SOD PHOSPHATE 4 MG/ML 1 ML VIAL IV SCH ×3 (00:30→12:14)
[2020-10-08] MEDS: KETOROLAC 15 MG/ML 1 ML VIAL IVP SCH ×4 (00:30→12:04)
[2020-10-08] MEDS: SIMETHICONE 40 MG/0.6 ML DROPS 2,000 MG/30 ML BOTTLE PO SCH ×3 (00:31→12:02)
[2020-10-08] MEDS: HYOSCYAMINE ORAL DROPS 1.875 MG/15 ML BOTTLE PO SCH ×3 (00:31→12:03)
[2020-10-08] MEDS: METOCLOPRAMIDE 5 MG/ML 2 ML VIAL IVP SCH ×3 (00:31→12:03)
[2020-10-08] MEDS: ACETAMINOPHEN IV (For NPO) 1,000 MG in EMPTY BAG 1 BAG IVPB SCH ×3 (00:32→12:13)
[2020-10-08] MEDS: 0.9% NACL WITH KCL 20 MEQ/L 1,000 ML IV SCH ×2 (01:55→04:23)
[2020-10-08] MEDS: LACTATED RINGERS 1,000 ML IV SCH (06:10)
[2020-10-08 06:54] LABS: Basophils % (A) 0 %; Eosinophils % (A) 0 %; HCT 39.5 % (34.0-46.0); HGB 13.2 gm/dL (11.4-16.0); Lymphocytes # (A) 0.9 k/uL (1.0-4.8); Lymphocytes % (A) 8 %; MCH 29.9 pg (25.0-35.0); MCHC 33.5 g/dL (31.0-37.0); MCV 89.4 fL (80.0-100.0); Mean Platelet Volume 6.9; Monocytes # (A) 0.4 k/uL (0-1.0); Monocytes % (A) 4 %; Neutrophils # (A) 8.7 k/uL (1.3-7.7); Neutrophils % (A) 87 %; Platelet Count 229 k/uL (150-450); RBC 4.41 m/uL (3.80-5.40); WBC 10.1 k/uL (3.8-10.6)
[2020-10-08 07:28] VITALS: RESP 18; TEMP 98.9
[2020-10-08] MEDS: ALBUTEROL NEBULIZED 2.5 MG/3 ML INHALATION SCH ×2 (07:53→11:03)
[2020-10-08] MEDS ORDERED: 1: THIAMINE 100 MG, FOLIC ACID 1 MG in 0.9% NACL WITH KCL 20 MEQ/L 1,000 ML 2: 0.9% NAC IVPB SCH (08:00)
[2020-10-08] MEDS ORDERED: GABAPENTIN 100 MG CAP PO SCH (09:00)
[2020-10-08] MEDS ORDERED: PANTOPRAZOLE 40 MG/10 ML VIAL IV SCH (09:00)
[2020-10-08] MEDS ORDERED: ENOXAPARIN 40 MG/0.4 ML SYRINGE SQ SCH (09:00)
[2020-10-08 10:59] LABS: African American GFR (CKD) 105.4 (60.0-200.0); Anion Gap 7.3 mmol/L (4.00-12.00); Calcium 8.2 mg/dL (8.7-10.3); Carbon Dioxide 20.7 mmol/L (21.6-31.8); Magnesium 2.1 mg/dL (1.5-2.4); Non-African American GFR(CKD) 90.9 (60.0-200.0); Phosphorus 3.1 mg/dL (2.4-5.1); Potassium 4.8 mmol/L (3.5-5.5)
[2020-10-08 11:03] VITALS: BMI 37.2
--- NOTE | 2020-10-08 11:21 | FL ---
EXAMINATION TYPE: FL UGI DATE OF EXAM: 10/08/2020 COMPARISON: None HISTORY: Postop gastric sleeve TECHNIQUE: A single contrast UGI study is performed. FINDINGS: Contrast passes from the distal esophagus through the gastric sleeve with mild hesitancy. N o extravasation of contrast is evident. Very minimal free air is identified under the right diaphragm. Overhead radiographs were obtained which are unremarkable. IMPRESSIONS: 1. Normal post gastric sleeve without obstruction or hesitancy. No extravasation.
[2020-10-08] MEDS ORDERED: SODIUM CHLORIDE 0.9% 2,000 ML IV ONE (14:22)
--- NOTE | 2020-10-08 14:25 | P.DS ---
Providers Date of admission: 10/07/20 10:28 Expected date of discharge: 10/08/20 Attending physician: Roseanna Mojica Primary care physician: Liliane Taylor - Discharge Diagnosis(es) (1) Morbid obesity due to excess calories Current Visit: Yes Status: Acute (2) S/P laparoscopic sleeve gastrectomy Current Visit: Yes Status: Acute Hospital Course: POSTOPERATIVE DIAGNOSES: 1. Morbid obesity due to excess calories 2. Body mass index of 41.5, initial 3. Osteoarthritis of the ankle. 4. Osteoarthritis of the lower back. 5. Depressive disorder 6. Gastroesophageal reflux disease 7. Past deep venous thrombosis of the arm 8. Transient ischemic attack 9. Generalized anxiety disorder 10. Depressive disorder COURSE: Lexii Hunter is a 40-year-old female with morbid obesity who is status post sleeve gastrectomy. Postoperatively, she was tolerating liquid diet. She had an esophagram demonstrating no leak or obstruction. Prior to discharge. Discharge instructions reviewed in detail including discharge medications and activities. Patient verbalized understanding. Procedures: POSTOPERATIVE DIAGNOSES: 1. Morbid obesity due to excess calories 2. Body mass index of 41.5, initial 3. Osteoarthritis of the ankle. 4. Osteoarthritis of the lower back. 5. Depressive disorder 6. Gastroesophageal reflux disease 7. Past deep venous thrombosis of the arm 8. Transient ischemic attack 9. Generalized anxiety disorder 10. Depressive disorder OPERATION: 1. Robotic assisted daVinci Xi laparoscopic sleeve gastrectomy with 40-Kyrgyz bougie, multiport. 2. Intraoperative esophagogastroduodenoscopy. ANESTHESIA: Gen. local anesthetic ESTIMATED BLOOD LOSS: 5 mL SPECIMENS REMOVED: Sleeve gastrectomy COMPLICATIONS: None. FINDINGS: 1. Negative intraoperative esophagogastrojejunoscopy leak test. 2. No hepatomegaly and no large hiatus hernia. 3. Total of 6 staplers used including 1 - 60 mm green robot damon and 5 - 60 mm blue robot loads used to create the gastric sleeve. 4. Sleeve gastrectomy, 30 x 6 cm INDICATIONS: Lexii Hunter is a 40-year-old female who comes with lifelong morbid obesity. She comes in looking into the sleeve gastrectomy. She has completed a medical supervised weight loss. As a result of her morbid obesity, she has developed comorbidities including osteoarthritis of the ankle, lower back as well as depressive disorder. As a result of her morbid obesity, she is looking into permanent solutions with surgical weight loss. Patient Condition at Discharge: Good Plan - Discharge Summary Discharge Rx Participant: Yes New Discharge Prescriptions: New bisacodyL [Dulcolax] 5 mg PO DAILY PRN #10 tablet. PRN Reason: Constipation Simethicone 40 mg/0.6 ml Drops [Mylicon Drops] 40 mg PO [facility] PRN #30 ml PRN Reason: Gas Omeprazole [PriLOSEC] 40 mg PO DAILY #30 capsule. Acetaminophen Oral Susp [Tylenol Oral Susp] 1,000 mg PO Q4-6H PRN #400 ml PRN Reason: Pain Ondansetron Odt [Zofran Odt] 4 mg PO Q8HR PRN #9 tab PRN Reason: Nausea Continue Gabapentin [Neurontin] 100 mg PO QAM Gabapentin 600 mg PO HS Vortioxetine Hydrobromide [Trintellix] 10 mg PO QAM Omeprazole [PriLOSEC] 40 mg PO DAILY #30 cap ALPRAZolam [Xanax] 0.5 mg PO DAILY PRN PRN Reason: Anxiety Lysine HCl [l-Lysine] 1,000 mg PO DAILY Discontinued Multivitamins, Thera [Multivitamin (formulary)] 1 tab PO DAILY Ascorbic Acid [Vitamin C] 1,000 mg PO DAILY Discharge Medication List Gabapentin 600 mg PO HS 05/24/20 [History] Gabapentin [Neurontin] 100 mg PO QAM 05/24/20 [History] Vortioxetine Hydrobromide [Trintellix] 10 mg PO QAM 05/24/20 [History] Omeprazole [PriLOSEC] 40 mg PO DAILY #30 cap 05/29/20 [Rx] ALPRAZolam [Xanax] 0.5 mg PO DAILY PRN 10/01/20 [History] Lysine HCl [l-Lysine] 1,000 mg PO DAILY 10/01/20 [History] Acetaminophen Oral Susp [Tylenol Oral Susp] 1,000 mg PO Q4-6H PRN #400 ml 10/08/20 [Rx] Omeprazole [PriLOSEC] 40 mg PO DAILY #30 capsule. 10/08/20 [Rx] Ondansetron Odt [Zofran Odt] 4 mg PO Q8HR PRN #9 tab 10/08/20 [Rx] Simethicone 40 mg/0.6 ml Drops [Mylicon Drops] 40 mg PO [facility] PRN #30 ml 10/08/20 [Rx] bisacodyL [Dulcolax] 5 mg PO DAILY PRN #10 tablet. 10/08/20 [Rx] Follow up [facility]ment(s[facility] [place] [facility] - [facility]20 Patient Instructions/Handouts: Nutrition after Bariatric Surgery (DC), Laparoscopic Sleeve Gastrectomy (GEN) Activity/Diet/Wound Care/Special Instructions: Continue to use incentive spirometry to prevent pneumonias. Please continue to ambulate at home to prevent blood clots in legs. No lifting over 4 pounds in 4 weeks, November 07 Follow-up at the bariatric center. May shower. Drink 64 oz of fluid daily. Start protein shakes on . Notify bariatric center for temp over 101.0, increased pain, drainage from incisions. No straws or carbonated beverages. Liquid diet only. Sugar content should be less than 6 g to avoid dumping syndrome. Take MOM for constipation. CRUSH, OPEN, OR CUT TABLETS LARGER THAN A SIZE OF A TIC TAC Discharge Disposition: HOME SELF-CARE
[2020-10-08 14:50] VITALS: BP 96/57; PULSE 60
[2020-10-08] MEDS ORDERED: ACETAMINOPHEN TAB 500 MG TAB PO SCH (18:00)
[2020-10-09] MEDS ORDERED: bisacodyL 5 MG TABLET.DR PO PRN (08:00)
== END 2020-10-08 15:37 | disposition home or self-care (01) | DRG 621 ==
LOC: 2ORMAIN 10:28 → 4SSUR 17:24
PROVIDERS: ADMIT Surgery Plastic and Reconstructive Surgery; ATTEND Surgery Plastic and Reconstructive Surgery
PROC: 8E0W4CZ Robotic Assisted Procedure of Trunk Region, Percutaneous Endoscopic Approach (ICD-10-PCS; principal; 2020-10-07 11:35)
PROC: 0DB64Z3 Excision of Stomach, Percutaneous Endoscopic Approach, Vertical (ICD-10-PCS; principal; 2020-10-07 11:35)
PROC: 0DJ08ZZ Inspection of Upper Intestinal Tract, Via Natural or Artificial Opening Endoscopic (ICD-10-PCS; principal; 2020-10-07 11:35)
DX: E66.01 Morbid (severe) obesity due to excess calories (principal); Z68.37 Body mass index [BMI] 37.0-37.9, adult; M19.079 Primary osteoarthritis, unspecified ankle and foot; M47.9 Spondylosis, unspecified; F32.9 Major depressive disorder, single episode, unspecified; F41.1 Generalized anxiety disorder; K21.9 Gastro-esophageal reflux disease without esophagitis; S43.402A Unspecified sprain of left shoulder joint, initial encounter; Z79.899 Other long term (current) drug therapy; Z86.718 Personal history of other venous thrombosis and embolism; Z86.73 Personal history of transient ischemic attack (TIA), and cerebral infarction without residual deficits; Z87.891 Personal history of nicotine dependence; Z88.5 Allergy status to narcotic agent; Z83.49 Family history of other endocrine, nutritional and metabolic diseases
CPT/HCPCS: 74240; 80051; 80053; 82310; 82565; 83735; 84100; 84520; 85025; 86850; 86900; 86901; 88307; 94640; 94760; 94762

== ENCOUNTER 2020-10-10 12:01 | Outpatient (CLI) | payer BC ==
[2020-10-10] MEDS ORDERED: SODIUM CHLORIDE 0.9% 2,000 ML IV ONE (12:23)
[2020-10-10 12:25] VITALS: BP 117/63; PULSE 56; RESP 16; TEMP 98.5
== END 2020-10-10 14:44 | disposition home or self-care (01) ==
LOC: PROCWHC3 12:01
PROVIDERS: ATTEND Surgery Plastic and Reconstructive Surgery
DX: E86.0 Dehydration (principal)
CPT/HCPCS: 96360; 96361

== ENCOUNTER → 2020-10-14 | Outpatient (CLI) | payer BC ==
[2020-10-14 15:21] VITALS: BP 118/79; PULSE 70; TEMP 97.8; BMI 36.5
== END | disposition home or self-care (01) ==
LOC: BARWHC3 14:57
PROVIDERS: ATTEND Surgery Plastic and Reconstructive Surgery
DX: E66.01 Morbid (severe) obesity due to excess calories (principal); Z71.3 Dietary counseling and surveillance
CPT/HCPCS: 97803; 99211

== ENCOUNTER → 2020-10-23 | Outpatient (CLI) | payer BC ==
[2020-10-23 15:58] VITALS: BP 150/64; PULSE 69; RESP 18; TEMP 98.3; BMI 35.6
--- NOTE | 2020-10-23 16:23 | P.PN ---
Subjective Progress Note Date: 10/23/20 DATE OF SERVICE: 10/23/2020 CHIEF COMPLAINT: Status post sleeve gastrectomy HISTORY OF PRESENT ILLNESS: Lexii Hunter is a 40-year-old female status post sleeve gastrectomy, 10/07/20. She is over 2 weeks out. She had gastreoesophageal reflux disease that is now resolved. She is taking Omeprazole. She denies any food getting stuck. She is less than 1 month out. She is pending to start her multivitamin. She is getting 2 protein shakes daily that is [employer] and [employer]. She is getting 60 grams protein daily. No current constipation. She has lost 20 pounds in 2 months. She reports stagnation in her weight loss for the past week. At height of 5 feet 1.75 inches, her ideal body weight is 131 pounds. Highest weight of 225 pounds, BMI 41.6. She comes in 193 pounds from 213 pounds, 2 months ago. She has lost 29 pounds in 2 months. Her lifetime weight loss is 32 pounds. Percent excess weight loss lifetime is 34%. Her body mass index is 35.6. She is 62 pounds overweight. PHYSICAL EXAM: VITAL SIGNS: Height 5 foot 1.75 inches, weight 193 pounds. Vital Signs Temp 98.3 F 10/23/20 15:52 Pulse 69 10/23/20 15:52 Resp 18 10/23/20 15:52 BP 150/64 10/23/20 15:52 Pulse Ox GENERAL: Well-developed in no acute distress. HEENT: No scleral icterus. Extraocular movements grossly intact. Hears conversational speech. No nasal drainage. NECK: Supple without lymphadenopathy. CHEST: Nonlabored respirations with equal bilateral excursions. CARDIOVASCULAR: Regular rate and regular rhythm. Distal 2+ pulses. ABDOMEN: Obese, soft, nontender, nondistended. No hernia. Incisions are granulated. MUSCULOSKELETAL: No clubbing, cyanosis. NEURO: No focal or lateralizing signs. Cranial nerves 2 through 12 grossly within normal limits. PSYCH: Appropriate affect. Alert and oriented to person, place and time. SKIN: Good skin turgor. Well perfused. ASSESSMENT: 1. Morbid obesity due to excess calories 2. Body mass index of 41.5, initial to 35.6 3. Osteoarthritis of the ankle. 4. Osteoarthritis of the lower back. 5. Depressive disorder 6. Gastroesophageal reflux disease 7. Past deep venous thrombosis of the arm 8. Transient ischemic attack 9. Generalized anxiety disorder 10. Depressive disorder 11. Status post sleeve gastrectomy PLAN: 1. Recommend bariatric labs 1 month post op. 2. Protein intake over 65 grams daily advised. Objective - Vital Signs Vital signs: Vital Signs Temp 98.3 F 10/23/20 15:52 Pulse 69 10/23/20 15:52 Resp 18 10/23/20 15:52 BP 150/64 10/23/20 15:52 Pulse Ox Intake & Output 10/22/20 10/23/20 10/23/20 18:59 06:59 18:59 Weight 87.543 kg
== END | disposition home or self-care (01) ==
LOC: BARWHC3 15:20
PROVIDERS: ATTEND Surgery Plastic and Reconstructive Surgery
DX: E66.01 Morbid (severe) obesity due to excess calories (principal); Z68.41 Body mass index [BMI] 40.0-44.9, adult; M19.079 Primary osteoarthritis, unspecified ankle and foot; M47.816 Spondylosis without myelopathy or radiculopathy, lumbar region; F32.9 Major depressive disorder, single episode, unspecified; K21.9 Gastro-esophageal reflux disease without esophagitis; G45.9 Transient cerebral ischemic attack, unspecified; F41.1 Generalized anxiety disorder; Z98.84 Bariatric surgery status; Z86.718 Personal history of other venous thrombosis and embolism
CPT/HCPCS: 99211

== ENCOUNTER → 2020-11-06 | Outpatient (CLI) | payer BC ==
[2020-11-06 15:31] LABS: HCT 42.3 % (34.0-46.0); HGB 14.1 gm/dL (11.4-16.0); MCH 29.2 pg (25.0-35.0); MCHC 33.4 g/dL (31.0-37.0); MCV 87.4 fL (80.0-100.0); Platelet Count 207 k/uL (150-450); RBC 4.84 m/uL (3.80-5.40); RDW 13.7 % (11.5-15.5); WBC 7.2 k/uL (3.8-10.6)
[2020-11-06 15:41] VITALS: BP 166/82; PULSE 82; RESP 18; TEMP 98.2; BMI 34.1
--- NOTE | 2020-11-06 16:30 | P.PN ---
Subjective Progress Note Date: 11/06/20 DATE OF SERVICE: 11/06/2020 CHIEF COMPLAINT: Status post sleeve gastrectomy HISTORY OF PRESENT ILLNESS: Lexii Hunter is a 40-year-old female status post sleeve gastrectomy, 10/07/20. She is 1 month out. She is doing well and losing weight. She reports pressure with over-eating at the epigastrium. She takes omeprazole. She had one time dysphagia to textured foods. She has developed intolerance to artifical sweetner. At height of 5 feet 1.75 inches, her ideal body weight is 131 pounds. Highest weight of 225 pounds, BMI 41.6. She comes in 185 pounds from 193 pounds, 2 weeks ago. She has lost 40 pounds in 2 weeks. Her lifetime weight loss is 40 pounds. Percent excess weight loss lifetime is 43%. Her body mass index is 34.1. She is 54 pounds overweight. PHYSICAL EXAM: VITAL SIGNS: Height 5 foot 1.75 inches, weight 185 pounds. Vital Signs Temp 98.2 F 11/06/20 15:37 Pulse 82 11/06/20 15:37 Resp 18 11/06/20 15:37 BP 166/82 11/06/20 15:37 Pulse Ox GENERAL: Well-developed in no acute distress. HEENT: No scleral icterus. Extraocular movements grossly intact. Hears conversational speech. No nasal drainage. NECK: Supple without lymphadenopathy. CHEST: Nonlabored respirations with equal bilateral excursions. CARDIOVASCULAR: Regular rate and regular rhythm. Distal 2+ pulses. ABDOMEN: Soft, nontender, nondistended. MUSCULOSKELETAL: No clubbing, cyanosis. NEURO: No focal or lateralizing signs. Cranial nerves 2 through 12 grossly within normal limits. PSYCH: Appropriate affect. Alert and oriented to person, place and time. SKIN: Good skin turgor. Well perfused. ASSESSMENT: 1. Morbid obesity due to excess calories 2. Body mass index of 41.5, initial to 34.1 3. Osteoarthritis of the ankle. 4. Osteoarthritis of the lower back. 5. Depressive disorder 6. Gastroesophageal reflux disease 7. Past deep venous thrombosis of the arm 8. Transient ischemic attack 9. Generalized anxiety disorder 10. Depressive disorder 11. Status post sleeve gastrectomy PLAN: 1. Recommend start multivitain. Start chewable 2. Recommend start probiotics 3. Recommend bariatric labs Laboratory Last Values WBC 7.2 k/uL (3.8-10.6) 11/06/20 15:07 RBC 4.84 m/uL (3.80-5.40) 11/06/20 15:07 Hgb 14.1 gm/dL (11.4-16.0) 11/06/20 15:07 Hct 42.3 % (34.0-46.0) 11/06/20 15:07 MCV 87.4 fL (80.0-100.0) 11/06/20 15:07 MCH 29.2 pg (25.0-35.0) 11/06/20 15:07 MCHC 33.4 g/dL (31.0-37.0) 11/06/20 15:07 RDW 13.7 % (11.5-15.5) 11/06/20 15:07 Plt Count 207 k/uL (150-450) 11/06/20 15:07 MPV 8.0 11/06/20 15:07 PT 12.3 sec (9.9-11.9) H 11/06/20 15:07 INR 1.15 (0.90-1.11) H 11/06/20 15:07 APTT 31.5 sec (23.5-31.0) H 11/06/20 15:07 Sodium 143 mmol/L (135-145) 11/06/20 15:07 Potassium 3.9 mmol/L (3.5-5.5) 11/06/20 15:07 Chloride 106 mmol/L (96-109) 11/06/20 15:07 Carbon Dioxide 24.4 mmol/L (21.6-31.8) 11/06/20 15:07 Anion Gap 12.60 mmol/L (4.00-12.00) H 11/06/20 15:07 BUN 21.0 mg/dL (9.0-27.0) 11/06/20 15:07 Creatinine 0.8 mg/dL (0.6-1.5) 11/06/20 15:07 Est GFR (CKD-EPI)AfAm 105.4 (60.0-200.0) 11/06/20 15:07 Est GFR (CKD-EPI)NonAf 90.9 (60.0-200.0) 11/06/20 15:07 BUN/Creatinine Ratio 26.25 Ratio (12.00-20.00) H 11/06/20 15:07 Glucose 91 mg/dL (70-110) 11/06/20 15:[address] Glu mg/dL 97 11/06/20 15:07 Hemoglobin A1c 5.0 % (4.0-6.0) 11/06/20 15:07 Calcium 9.8 mg/dL (8.7-10.3) 11/06/20 15:07 Phosphorus 3.1 mg/dL (2.4-5.1) 11/06/20 15:07 Magnesium 1.9 mg/dL (1.5-2.4) 11/06/20 15:07 Iron 34 ug/dL (50-170) L 11/06/20 15:07 TIBC 257 ug/dL (228-460) 11/06/20 15:07 % Saturation 13.23 (12.00-45.00) 11/06/20 15:07 Ferritin 387.8 ng/mL (10.0-291.0) H 11/06/20 15:07 Total Bilirubin 0.5 mg/dL (0.3-1.2) 11/06/20 15:07 AST 25 U/L (13-35) 11/06/20 15:07 ALT 30 U/L (8-44) 11/06/20 15:07 Alkaline Phosphatase 78 U/L (41-126) 11/06/20 15:07 Total Protein 7.0 g/dL (6.2-8.2) 11/06/20 15:07 Albumin 4.90 g/dL (3.80-4.90) 11/06/20 15:07 Globulin 2.1 g/dL (1.6-3.3) 11/06/20 15:07 Albumin/Globulin Ratio 2.33 g/dL (1.60-3.17) 11/06/20 15:07 Prealbumin 16.0 mg/dL (18.0-42.0) L 11/06/20 15:07 Triglycerides 138.0 mg/dL (0.0-149.0) 11/06/20 15:07 Cholesterol 155 mg/dL (0-200) 11/06/20 15:07 LDL Cholesterol, Calc 72.4 mg/dL (0.0-131.0) 11/06/20 15:07 VLDL Cholesterol, Calc 27.60 mg/dL (5.00-40.00) 11/06/20 15:07 HDL Cholesterol 55.0 mg/dL (40.0-60.0) 11/06/20 15:07 Cholesterol/HDL Ratio 2.82 11/06/20 15:07 Vitamin A 31 ug/dL (38-106) L 11/06/20 15:07 Vitamin B12 852.0 pg/mL (200.0-944.0) 11/06/20 15:07 Vitamin B1 56 ug/L (38-122) 11/06/20 15:07 Vitamin D 25-Hydroxy 25.5 ng/mL (30.0-100.0) L 11/06/20 15:07 Folate 12.7 ng/mL 11/06/20 15:07 TSH 2.150 uIU/mL (0.350-5.500) 11/06/20 15:07 PTH Intact 40.0 pg/mL (14.0-72.0) 11/06/20 15:07 Copper 1377 ug/L (810-1990) 11/06/20 15:07 Zinc 77 ug/dL (60-130) 11/06/20 15:07 Objective - Vital Signs Vital signs: Vital Signs Temp 98.2 F 11/06/20 15:37 Pulse 82 11/06/20 15:37 Resp 18 11/06/20 15:37 BP 166/82 11/06/20 15:37 Pulse Ox Intake & Output 11/05/20 11/06/20 11/06/20 18:59 06:59 18:59 Weight 83.915 kg - Labs CBC & Chem 7: 11/06/20 15:07 11/06/20 15:07
[2020-11-06 23:00] LABS: INR 1.15 (0.90-1.11); Partial Thromboplastin Time 31.5 sec (23.5-31.0); Prothrombin Time 12.3 sec (9.9-11.9)
[2020-11-07 02:17] LABS: % Iron Saturation 13.23 (12.00-45.00); African American GFR (CKD) 105.4 (60.0-200.0); Albumin 4.9 g/dL (3.80-4.90); Albumin/Globulin Ratio 2.33 (1.60-3.17); Anion Gap 12.6 mmol/L (4.00-12.00); BUN/Creat Ratio 26.25 Ratio (12.00-20.00); Calcium 9.8 mg/dL (8.7-10.3); Carbon Dioxide 24.4 mmol/L (21.6-31.8); Chol/HDL Ratio 2.82; Globulin 2.1 g/dL (1.6-3.3); LDL Cholesterol,Calculated 72.4 mg/dL (0.0-131.0); Magnesium 1.9 mg/dL (1.5-2.4); Non-African American GFR(CKD) 90.9 (60.0-200.0); Phosphorus 3.1 mg/dL (2.4-5.1); Potassium 3.9 mmol/L (3.5-5.5); Total Bilirubin 0.5 mg/dL (0.3-1.2); VLDL Calculation 27.6 mg/dL (5.00-40.00)
[2020-11-07 02:42] LABS: Ferritin 387.8 ng/mL (10.0-291.0); Folate, Serum 12.7 ng/mL
[2020-11-07 11:53] LABS: Zinc, Serum 77 ug/dL (60-130)
[2020-11-08 07:01] LABS: Vitamin A 31 ug/dL (38-106)
[2020-11-08 13:18] LABS: Vit B1(Thiamine) 56 ug/L (38-122)
[2020-11-11 11:22] LABS: Selenium 119 mcg/L (63-160)
== END | disposition home or self-care (01) ==
LOC: BARWHC3 14:58
PROVIDERS: ATTEND Surgery Plastic and Reconstructive Surgery
DX: E66.01 Morbid (severe) obesity due to excess calories (principal); Z68.41 Body mass index [BMI] 40.0-44.9, adult; M19.079 Primary osteoarthritis, unspecified ankle and foot; M47.816 Spondylosis without myelopathy or radiculopathy, lumbar region; K21.9 Gastro-esophageal reflux disease without esophagitis; F41.1 Generalized anxiety disorder; G45.9 Transient cerebral ischemic attack, unspecified; F32.9 Major depressive disorder, single episode, unspecified; Z98.84 Bariatric surgery status; Z86.79 Personal history of other diseases of the circulatory system
CPT/HCPCS: 36415; 80053; 80061; 82306; 82525; 82607; 82728; 82746; 83036; 83540; 83550; 83735; 83970; 84100; 84134; 84255; 84425; 84443; 84590; 84630; 85027; 85610; 85730; 97803; 99211

== ENCOUNTER 2020-11-24 16:52 | Emergency (ER) | payer BC ==
[2020-11-24 16:58] VITALS: RESP 16
[2020-11-24] MEDS ORDERED: ONDANSETRON 4 MG/2 ML VIAL IVP STA (17:08)
[2020-11-24] MEDS ORDERED: KETOROLAC 15 MG/ML 1 ML VIAL IVP STA (17:08)
[2020-11-24] MEDS ORDERED: SODIUM CHLORIDE 0.9% 1,000 ML IV STA (17:08)
--- NOTE | 2020-11-24 17:29 | ED ---
Abdominal Pain HPI - General Source: patient, RN notes reviewed Mode of arrival: ambulatory Limitations: no limitations <Arsh Lam - Last Filed: 11/24/20 18:39> <Mateo Callaway - Last Filed: 11/24/20 20:37> - General Chief Complaint: Abdominal Pain Stated Complaint: Post surgery complications Time Seen by Provider: 11/24/20 17:00 - History of Present Illness Initial Comments: 40-year-old female that comes to emergency department complaining of abdominal pain and not having a bowel movement in 3 days. She noted that she did have bariatric surgery back in September, and just recently had shoulder surgery this past Wednesday. She noted that every time she tries to sit on the toilet due to an extreme pressure. She noted the pain is about a 6 or 7 out of 10 constant. She reported that during to her kids was easily trying to pass a bowel movement. She noted that she took milk of Magnesia this morning to try to help things move along but noted that when she got up from the toilet liquid diarrhea ran out with no control to her. She does have a history of hemorrhoids. He notes that it feels like she has some currently. Patient has a full feeling while sitting up anytime. She noted that try to get in the car to drive to emergency room she could feel the fullness and pain. He was in moderate amount of distress and pain. She did note that she was more embarrassed about the inability to control her bowels after standing up. She denied any chest pain shortness of breath nausea vomiting fever fatigue chills decreased sensation numbness tingling (Arsh Lam) - Related Data Home Medications Medication Instructions Recorded Confirmed Gabapentin 600 mg PO HS 05/24/20 11/06/20 Gabapentin [Neurontin] 100 mg PO QAM 05/24/20 11/06/20 Vortioxetine Hydrobromide 10 mg PO QAM 05/24/20 11/06/20 [Trintellix] ALPRAZolam [Xanax] 0.5 mg PO DAILY PRN 10/01/20 11/06/20 Lysine HCl [l-Lysine] 1,000 mg PO DAILY 10/01/20 11/06/20 Previous Rx's Medication Instructions Recorded Acetaminophen Oral Susp [Tylenol 1,000 mg PO Q4-6H PRN #400 ml 12/29/20 Oral Susp] Omeprazole [PriLOSEC] 40 mg PO DAILY #30 capsule. 10/08/20 Ondansetron Odt [Zofran Odt] 4 mg PO Q8HR PRN #9 tab 10/08/20 Simethicone 40 mg/0.6 ml Drops 40 mg PO PCHS PRN #30 ml 10/08/20 [Mylicon Drops] bisacodyL [Dulcolax] 5 mg PO DAILY PRN #10 tablet. 10/08/20 Cephalexin [Keflex] 500 mg PO Q12HR #20 cap 11/24/20 Fluconazole [Diflucan] 150 mg PO ONCE #2 tab 11/24/20 Allergies Allergy/AdvReac Type Severity Reaction Status Date / Time hydrocodone AdvReac Intermediate Nausea & Verified 11/24/20 16:58 Vomiting Review of Systems ROS Other: All systems not noted in ROS Statement are negative. <Arsh Lam - Last Filed: 11/24/20 18:39> ROS Other: All systems not noted in ROS Statement are negative. <Mateo Callaway - Last Filed: 11/24/20 20:37> ROS Statement: Those systems with pertinent positive or pertinent negative responses have been documented in the HPI. Past Medical History Past Medical History: GERD/Reflux Additional Past Medical History / Comment(s): HX OF BLOOD CLOT IN Left ARM- states r/t control History of Any Multi-Drug Resistant Organisms: None Reported Past Surgical History: Back Surgery, Bariatric Surgery, Uterine Ablation Additional Past Surgical History / Comment(s): CARPAL TUNNEL,laminectomy l4-l5 sleeve gastrectomy 10-07-20 Past Anesthesia/Blood Transfusion Reactions: Postoperative Nausea & Vomiting (PONV) Additional Past Anesthesia/Blood Transfusion Reaction / Comment(s): no hx blood transfusion Past Psychological History: Anxiety, Depression Smoking Status: Never smoker Past Alcohol Use History: Occasional Past Drug Use History: None Reported - Past Family History Mother Family Medical History: No Reported History <Arsh Lam - Last Filed: 11/24/20 18:39> General Exam Limitations: no limitations General appearance: alert, in no apparent distress Head exam: Present: atraumatic, normocephalic, normal inspection Eye exam: Present: normal appearance, PERRL, EOMI. Absent: scleral icterus, conjunctival injection, periorbital swelling ENT exam: Present: normal exam, mucous membranes moist Neck exam: Present: normal inspection. Absent: tenderness, meningismus, lymphadenopathy Respiratory exam: Present: normal lung sounds bilaterally. Absent: respiratory distress, wheezes, rales, rhonchi, stridor Cardiovascular Exam: Present: regular rate, normal rhythm, normal heart sounds. Absent: systolic murmur, diastolic murmur, rubs, gallop, clicks GI/Abdominal exam: Present: soft, diminished bowel sounds (Decreased bowel sounds in left lower quadrant.). Absent: distended, tenderness, guarding, rebound, rigid Rectal exam: Present: hemorrhoids (Several small external hemorrhoids with 1 larger than the rest that is slightly purple in color but nontender to palpation) Extremities exam: Present: normal inspection, full ROM, normal capillary refill. Absent: tenderness, pedal edema, joint swelling, calf tenderness Neurological exam: Present: alert, oriented X3, CN II-XII intact Psychiatric exam: Present: normal affect, normal mood Skin exam: Present: warm, dry, intact, normal color. Absent: rash <Arsh Lam - Last Filed: 11/24/20 18:39> Course <Arsh Lam - Last Filed: 11/24/20 18:39> Vital Signs 11/24/20 11/24/20 16:55 19:00 Temperature 98.4 F 97.9 F Pulse Rate 93 66 Respiratory 16 16 Rate Blood Pressure 148/88 100/50 O2 Sat by Pulse 99 100 Oximetry - Reevaluation(s) Reevaluation #1: 11/24/20 18:49 Patient said she stated she felt about the same as before. She did note that she was getting some swelling to her over and peridium area from sitting on the toilet trying to have bowel movement. She was informed that x-ray came up with no obstruction or fecal mass. He was informed that a CT was ordered. She noted that she was okay with this and just wanted answers. (Arsh Lam) Medical Decision Making - Lab Data Result diagrams: 11/24/20 17:24 11/24/20 17:24 - Radiology Data Radiology results: report reviewed, image reviewed <Arsh Lam - Last Filed: 11/24/20 18:39> - Lab Data Result diagrams: 11/24/20 17:24 11/24/20 17:24 <Mateo Callaway - Last Filed: 11/24/20 20:37> - Medical Decision Making 40-year-old female complaining of constipation for the past 3 days, status post bariatric surgery in the summer and shoulder surgery last Wednesday. Labs, fluid, pain medication, antibiotic medication, x-ray ordered. X-ray came back unremarkable. CT of the abdomen and pelvis ordered. Case discussed with and passed off to Dr. Callaway. (Arsh Lam) CT performed, shows a large stool burden consistent with fecal impaction, no other acute findings. Patient given an enema and had is able to have a bowel movement in the emergency department (Mateo Callaway) - Lab Data Lab Results 11/24/20 11/24/20 11/24/20 Range/Units 17:24 17:24 17:24 WBC 14.6 H (3.8-10.6) k/uL RBC 4.97 (3.80-5.40) m/uL Hgb 14.1 (11.4-16.0) gm/dL Hct 43.1 (34.0-46.0) % MCV 86.8 (80.0-100.0) fL MCH 28.3 (25.0-35.0) pg MCHC 32.6 (31.0-37.0) g/dL RDW 14.5 (11.5-15.5) % Plt Count 237 (150-450) k/uL MPV 7.3 Neutrophils % 87 % Lymphocytes % 6 % Monocytes % 4 % Eosinophils % 2 % Basophils % 0 % Neutrophils # 12.7 H (1.3-7.7) k/uL Lymphocytes # 0.9 L (1.0-4.8) k/uL Monocytes # 0.5 (0-1.0) k/uL Eosinophils # 0.4 (0-0.7) k/uL Basophils # 0.0 (0-0.2) k/uL Sodium 140 (137-145) mmol/L Potassium 4.0 (3.5-5.1) mmol/L Chloride 106 (98-107) mmol/L Carbon Dioxide 23 (22-30) mmol/L Anion Gap 11 mmol/L BUN 9 (7-17) mg/dL Creatinine 0.55 (0.52-1.04) mg/dL Est GFR (CKD-EPI)AfAm >90 (>60 ml/min/1.73 sqM) Est GFR (CKD-EPI)NonAf >90 (>60 ml/min/1.73 sqM) Glucose 119 H (74-99) mg/dL Calcium 9.2 (8.4-10.2) mg/dL Total Bilirubin 0.7 (0.2-1.3) mg/dL AST 27 (14-36) U/L ALT 24 (4-34) U/L Alkaline Phosphatase 62 (38-126) U/L Total Protein 7.2 (6.3-8.2) g/dL Albumin 4.3 (3.5-5.0) g/dL Urine Color Yellow Urine Appearance Cloudy H (Clear) Urine pH 5.5 (5.0-8.0) Ur Specific [place] 1.024 (1.001-1.035) Urine Protein 1+ H (Negative) Urine Glucose (UA) Negative (Negative) Urine Ketones 4+ H (Negative) Urine Blood Negative (Negative) Urine Nitrite Negative (Negative) Urine Bilirubin Negative (Negative) Urine Urobilinogen 2.0 (<2.0) mg/dL Ur Leukocyte Esterase Moderate H (Negative) Urine RBC 1 (0-5) /hpf Urine WBC 6 H (0-5) /hpf Ur Squamous Epith Cells 4 (0-4) /hpf Urine Bacteria Rare H (None) /hpf Urine Mucus Few H (None) /hpf - Radiology Data No acute process. There are nondilated bowel loops with a nonobstructive pattern no free air. No pathologic calcifications. No osseous emboli seen in pelvic phleboliths are seen (Arsh Lam) Disposition <Arsh Lam - Last Filed: 11/24/20 18:39> Is patient prescribed a controlled substance at d/c from ED?: No Time of Disposition: 20:13 <Mateo Callaway - Last Filed: 11/24/20 20:37> Clinical Impression: Abdominal pain, Constipation Disposition: HOME SELF-CARE Condition: Good Instructions (If sedation given, give patient instructions): Constipation (ED), Abdominal Pain (ED) Additional Instructions: Please continue Colace, complaining of fluids, follow up with your bariatric surgeon. Prescriptions: Fluconazole [Diflucan] 150 mg PO ONCE #2 tab Cephalexin [Keflex] 500 mg PO Q12HR #20 cap Referrals: Liliane Taylor DO [Primary Care Provider] - 1-2 days Roseanna Mojica MD [STAFF PHYSICIAN] - 1-2 days
[2020-11-24 17:52] LABS: Basophils % (A) 0 %; Eosinophils # (A) 0.4 k/uL (0-0.7); Eosinophils % (A) 2 %; HCT 43.1 % (34.0-46.0); HGB 14.1 gm/dL (11.4-16.0); Lymphocytes # (A) 0.9 k/uL (1.0-4.8); Lymphocytes % (A) 6 %; MCH 28.3 pg (25.0-35.0); MCHC 32.6 g/dL (31.0-37.0); MCV 86.8 fL (80.0-100.0); Mean Platelet Volume 7.3; Monocytes # (A) 0.5 k/uL (0-1.0); Monocytes % (A) 4 %; Neutrophils # (A) 12.7 k/uL (1.3-7.7); Neutrophils % (A) 87 %; Platelet Count 237 k/uL (150-450); RBC 4.97 m/uL (3.80-5.40); RDW 14.5 % (11.5-15.5); WBC 14.6 k/uL (3.8-10.6)
[2020-11-24 18:03] LABS: ALT 24 U/L (4-34); AST 27 U/L (14-36); African American GFR (CKD) >90 (>60 ml/min/1.73 sqM); Albumin 4.3 g/dL (3.5-5.0); Alkaline Phosphatase 62 U/L (38-126); Anion Gap 11 mmol/L; Blood Urea Nitrogen 9 mg/dL (7-17); Calcium 9.2 mg/dL (8.4-10.2); Carbon Dioxide 23 mmol/L (22-30); Chloride 106 mmol/L (98-107); Glucose 119 mg/dL (74-99); Non-African American GFR(CKD) >90 (>60 ml/min/1.73 sqM); Sodium 140 mmol/L (137-145); Total Bilirubin 0.7 mg/dL (0.2-1.3); Total Protein 7.2 g/dL (6.3-8.2)
[2020-11-24 18:17] LABS: Appearance,Urine Cloudy (Clear); Bacteria,Urine Rare /hpf; Bilirubin,Urine Negative (Negative); Blood,Urine Negative (Negative); Color,Urine Yellow; Glucose,Urine (UA) Negative (Negative); Ketones,Urine 4+ (Negative); Leukocyte Esterase,Urine Moderate (Negative); Mucus,Urine Few /hpf; Nitrite,Urine Negative (Negative); PH, Urine 5.5 (5.0-8.0); Protein,Urine 1+ (Negative); RBC,Urine 1 /hpf (0-5); Specific Gravity,Urine 1.024 (1.001-1.035); Squamous Epithelial Cell,Urine 4 /hpf (0-4); WBC,Urine 6 /hpf (0-5)
--- NOTE | 2020-11-24 18:35 | XR ---
EXAM: Abdomen radiograph. HISTORY: Pain. TECHNIQUE: Upright AP view. COMPARISON: None available. FINDINGS: There are nondilated bowel loops with a nonobstructive pattern. No free air. There are no pathologic calcifications. No acute osseous abnormality seen. Pelvic phleboliths are seen. IMPRESSION: No acute process.
--- NOTE | 2020-11-24 19:13 | CT ---
EXAMINATION TYPE: CT abdomen pelvis w con DATE OF EXAM: 11/24/2020 COMPARISON: Same day radiograph. HISTORY: Constipation x 4-5 days, loose stools today. CT DLP: 1269.2 mGycm Automated exposure control for dose reduction was used. TECHNIQUE: Helical acquisition of images was performed from the lung bases through the pelvis. CONTRAST: Performed without Oral Contrast and with IV Contrast, patient injected with 100 mL of Isovue 300. FINDINGS: LUNG BASES: No significant abnormality is appreciated. LIVER/GB: No acute abnormality is appreciated. Focal hepatic steatosis adjacent to the falciform liga ment seen. PANCREAS: No significant abnormality is seen. SPLEEN: No significant abnormality is seen. ADRENALS: No significant abnormality is seen. KIDNEYS: No acute abnormality is seen. 2 nonobstructing left renal calculus in the lower pole. FREE AIR: No free air is visualized. RETROPERITONEAL ADENOPATHY: None visualized REPRODUCTIVE ORGANS: No significant abnormality is seen URINARY BLADDER: No significant abnormality is seen. PELVIC ADENOPATHY: None visualized. OSSEOUS STRUCTURES: No acute abnormality is seen. Mild lumbar spondylosis with minimal grade 1 anter olisthesis of L4 on L5. BOWEL: No bowel obstruction, free air or fluid. Moderate amount of stool in the rectal vault. Gastri c sleeve seen. Multiple hyperdense structures within the distal ileum, compatible with ingested medic ation. OTHER: None. IMPRESSION: MODERATE RECTAL VAULT STOOL BURDEN. Otherwise no acute abnormality. Multiple hyperdense structures within the distal ileum, compatible with ingested medication Additional chronic and incidental findings as above.
[2020-11-24 19:16] VITALS: BP 100/50
[2020-11-24] MEDS ORDERED: SODIUM CHLORIDE 0.9% 500 ML 500 ML IV ONE (19:29)
[2020-11-24 21:03] VITALS: PULSE 82; TEMP 98.3
== END 2020-11-24 21:02 | disposition home or self-care (01) ==
LOC: EC 16:52
DX: K59.00 Constipation, unspecified (principal); F41.9 Anxiety disorder, unspecified; F32.9 Major depressive disorder, single episode, unspecified; Z79.899 Other long term (current) drug therapy; Z88.5 Allergy status to narcotic agent; Z98.890 Other specified postprocedural states
CPT/HCPCS: 36415; 80053; 85025; 81001; 74018; 74177; 99284; 96374; 96361; J2405; Q9967

== ENCOUNTER → 2020-12-04 | Outpatient (CLI) | payer BC ==
[2020-12-04 16:00] VITALS: BP 134/82; PULSE 57; RESP 18; TEMP 98.4; BMI 32.4
--- NOTE | 2020-12-04 16:19 | P.PN ---
Subjective Progress Note Date: 12/04/20 DATE OF SERVICE: 12/04/2020 CHIEF COMPLAINT: Status post sleeve gastrectomy HISTORY OF PRESENT ILLNESS: Lexii Hunter is a 40-year-old female status post sleeve gastrectomy, 10/07/20. She is 2 months out. She comes in following going to the emergency room 1 week ago for troubles with her bowel. She had severe constipation where she needed an enema. She denies gastroesophageal reflux disease. She has severe constipation. She reports using dulcolax. She has not tried lactulose. At height of 5 feet 1.75 inches, her ideal body weight is 131 pounds. Highest weight of 225 pounds, BMI 41.6. She comes in 176 pounds from 185 pounds, 1 month ago. She has lost 9 pounds in 1 month. Her lifetime weight loss is 49 pounds. Percent excess weight loss lifetime is 53%. Her body mass index is 32.4. She is 45 pounds overweight. PHYSICAL EXAM: VITAL SIGNS: Height 5 foot 1.75 inches, weight 176 pounds. Vital Signs Temp 98.4 F 12/04/20 15:54 Pulse 57 L 12/04/20 15:54 Resp 18 12/04/20 15:54 BP 134/82 12/04/20 15:54 Pulse Ox GENERAL: Well-developed in no acute distress. HEENT: No scleral icterus. Extraocular movements grossly intact. Hears conversational speech. No nasal drainage. NECK: Supple without lymphadenopathy. CHEST: Nonlabored respirations with equal bilateral excursions. CARDIOVASCULAR: Regular rate and regular rhythm. Distal 2+ pulses. ABDOMEN: Soft, nontender, nondistended. MUSCULOSKELETAL: No clubbing, cyanosis. NEURO: No focal or lateralizing signs. Cranial nerves 2 through 12 grossly within normal limits. PSYCH: Appropriate affect. Alert and oriented to person, place and time. SKIN: Good skin turgor. Well perfused. ASSESSMENT: 1. Morbid obesity due to excess calories 2. Body mass index of 41.5, initial to 34.1 3. Osteoarthritis of the ankle. 4. Osteoarthritis of the lower back. 5. Depressive disorder 6. Gastroesophageal reflux disease 7. Past deep venous thrombosis of the arm 8. Transient ischemic attack 9. Generalized anxiety disorder 10. Depressive disorder 11. Status post sleeve gastrectomy 12. Constipation PLAN: 1. Recommend lactulose. 2. Recommend colonoscopy with evaluation of hemorrhoids. 3. Dietary changes including adding pears and Fiber one cereal for improvement of bowel habits. Objective - Vital Signs Vital signs: Vital Signs Temp 98.4 F 12/04/20 15:54 Pulse 57 L 12/04/20 15:54 Resp 18 12/04/20 15:54 BP 134/82 12/04/20 15:54 Pulse Ox Intake & Output 12/03/20 12/04/20 12/04/20 18:59 06:59 18:59 Weight 79.832 kg
== END | disposition home or self-care (01) ==
LOC: BARWHC3 14:50
PROVIDERS: ATTEND Surgery Plastic and Reconstructive Surgery
DX: E66.01 Morbid (severe) obesity due to excess calories (principal); M19.079 Primary osteoarthritis, unspecified ankle and foot; F32.9 Major depressive disorder, single episode, unspecified; K21.9 Gastro-esophageal reflux disease without esophagitis; K59.00 Constipation, unspecified; M47.816 Spondylosis without myelopathy or radiculopathy, lumbar region; F41.1 Generalized anxiety disorder; Z68.34 Body mass index [BMI] 34.0-34.9, adult; Z79.899 Other long term (current) drug therapy; Z86.73 Personal history of transient ischemic attack (TIA), and cerebral infarction without residual deficits; Z86.718 Personal history of other venous thrombosis and embolism; Z98.84 Bariatric surgery status
CPT/HCPCS: 99211

== ENCOUNTER → 2021-01-01 | Outpatient (CLI) | payer BC ==
[2021-01-01 15:39] VITALS: BP 130/75; PULSE 69; RESP 18; TEMP 98.3; BMI 30.6
--- NOTE | 2021-01-01 16:10 | P.PN ---
Subjective Progress Note Date: 01/01/21 She has terrible bowel movements with constipation. Recommend colonoscopy. Needs a prep. Phone calls completed. Objective - Vital Signs Vital signs: Vital Signs Temp 98.3 F 01/01/21 15:34 Pulse 69 01/01/21 15:34 Resp 18 01/01/21 15:34 BP 130/75 01/01/21 15:34 Pulse Ox Intake & Output 12/31/20 01/01/21 01/01/21 18:59 06:59 18:59 Weight 75.296 kg
== END ==
LOC: BARWHC3 14:48
PROVIDERS: ATTEND Surgery Plastic and Reconstructive Surgery
DX: E66.01 Morbid (severe) obesity due to excess calories (principal); Z71.3 Dietary counseling and surveillance
CPT/HCPCS: 97803; 99211

== ENCOUNTER 2021-01-06 07:12 | Day surgery (SDC) | payer BC ==
[2021-01-01 10:33] VITALS: BMI 29.9
--- NOTE | 2021-01-06 04:58 | P.GSHP ---
History of Present Illness H&P Date: 01/06/21 CHIEF COMPLAINT: Change in bowel habits HISTORY OF PRESENT ILLNESS: The patient is a 40-year-old female who presents for colon screen. Lower endoscopy was offered for further evaluation and management. PAST MEDICAL HISTORY: Please see list. PAST SURGICAL HISTORY: Please see list. MEDICATIONS: Please see list. ALLERGIES: Please see list. SOCIAL HISTORY: No illicit drug use FAMILY HISTORY: No reports of Crohn disease or ulcerative colitis. REVIEW OF ORGAN SYSTEMS: CONSTITUTIONAL: No reports of fevers or chills. PHYSICAL EXAM: VITAL SIGNS: Stable GENERAL: Well-developed pleasant in no acute distress. HEENT: No scleral icterus. Extraocular movements grossly intact. Moist buccal mucosa. NECK: Supple without lymphadenopathy. CHEST: Unlabored respirations. Equal bilateral excursions. CARDIOVASCULAR: Regular rate and rhythm. Distal 2+ pulses. ABDOMEN: Soft, nontender, nondistended. MUSCULOSKELETAL: No clubbing, cyanosis, or edema. ASSESSMENT: 1. Change in bowel habits PLAN: 1. Recommend proceeding with a lower endoscopy Past Medical History Past Medical History: Deep Vein Thrombosis (DVT), GERD/Reflux Additional Past Medical History / Comment(s): HX OF BLOOD CLOT IN Left ARM- states r/t control, CHANGE IN BOWEL HABITS SINCE GASTRIC SLEEVE WAS SEEN IN ER FOR IMPACTION 12/04/20 History of Any Multi-Drug Resistant Organisms: None Reported Past Surgical History: Back Surgery, Bariatric Surgery, Orthopedic Surgery, Uterine Ablation Additional Past Surgical History / Comment(s): CARPAL TUNNEL,laminectomy l4-l5 sleeve gastrectomy 10-07-20; left shoulder bone spur removal NOV 22, 2020; EGD Past Anesthesia/Blood Transfusion Reactions: Postoperative Nausea & Vomiting (PONV) Additional Past Anesthesia/Blood Transfusion Reaction / Comment(s): no hx blood transfusion Smoking Status: Former smoker - Past Family History Mother Family Medical History: No Reported History Medications and Allergies Home Medications Medication Instructions Recorded Confirmed Type Gabapentin [Neurontin] 100 mg PO QAM 05/24/20 01/01/21 History Vortioxetine Hydrobromide 10 mg PO QAM 05/24/20 01/01/21 History [Trintellix] ALPRAZolam [Xanax] 0.5 mg PO DAILY PRN 10/01/20 01/01/21 History Omeprazole [PriLOSEC] 40 mg PO DAILY #30 capsule. 10/08/20 01/01/21 Rx bisacodyL [Dulcolax] 5 mg PO DAILY PRN #10 tablet. 10/08/20 01/01/21 Rx Sodium, Potassium,Mag Sulfates 354 ml PO DIRECTED #1 kit 01/01/21 Rx [Suprep Bowel Prep Kit] Allergies Allergy/AdvReac Type Severity Reaction Status Date / Time hydrocodone AdvReac Intermediate Nausea & Verified 01/01/21 15:34 Vomiting
[2021-01-06 07:36] VITALS: RESP 16; TEMP 97.8
[2021-01-06] MEDS ORDERED: LACTATED RINGERS 1,000 ML IV ONE (07:43)
[2021-01-06] MEDS ORDERED: LIDOCAINE 1% (10MG/ML) FOR IV START INTRADERMA ONE (07:44)
[2021-01-06] MEDS ORDERED: PROPOFOL 10 MG/ML 20 ML VIAL IV ONE (07:53)
--- NOTE | 2021-01-06 08:23 | P.PCN ---
Date of Procedure: 01/06/21 Description of Procedure: PREOPERATIVE DIAGNOSIS: Change in bowel habits POSTOPERATIVE DIAGNOSIS: Large bowel diverticulosis, scattered Colon polyps, sigmoid Change in bowel habits OPERATION: Colonoscopy to the cecum, ileocecal valve and appendiceal orifice. Colonoscopy with polypectomy using cold forceps SURGEON: Roseanna Mojica MD. ANESTHESIA: MAC. INDICATIONS: The patient is a 40-year-old female who presents with change in bowel habits. Benefits and risks were described and informed consent was obtained. DESCRIPTION OF PROCEDURE: The patient had undergone Sutab prep. The patient had been brought into the operating room and laid in the left lateral decubitus position. After adequate intravenous sedation, the rectum was examined with 2% lidocaine jelly. No external hemorrhoids were encountered. The rectal tone was within normal limits. No lesions were palpated in the rectal vault. An Olympus colonoscope was advanced until the cecum, ileocecal valve and appendiceal orifice were clearly viewed. The prep was excellent. Scattered diverticulosis was encountered along the ascending colon. Small polyps were removed using cold forceps along the sigmoid colon. Focal mild proctitis was found. Retroflexion of the scope demonstrated grade 2 internal hemorrhoids without active bleeding or inflammation. The colon was desufflated. The patient had tolerated the procedure well. Withdrawal time was over 6 minutes. FINDINGS: Aronchick preparation quality scale 1 (1-5) Internal hemorrhoids, grade 2 No external prolapsed hemorrhoids. No arteriovenous malformations. Removal of 2 polyps -Cold forceps biopsy at sigmoid colon at 20 cm from the anal verge, 3-4 mm in size Mild proctitis RECOMMENDATIONS: Lower endoscopy in 5 years, 2025 Plan - Discharge Summary Discharge Rx Participant: No New Discharge Prescriptions: New Polyethylene Glycol 3350 [Miralax] 17 gm PO DAILY PRN #238 gm PRN Reason: Constipation Continue Gabapentin [Neurontin] 100 mg PO QAM Vortioxetine Hydrobromide [Trintellix] 10 mg PO QAM ALPRAZolam [Xanax] 0.5 mg PO DAILY PRN PRN Reason: Anxiety Omeprazole [PriLOSEC] 40 mg PO DAILY #30 capsule. Sodium, Potassium,Mag Sulfates [Suprep Bowel Prep Kit] 354 ml PO DIRECTED #1 kit Discontinued bisacodyL [Dulcolax] 5 mg PO DAILY PRN #10 tablet. PRN Reason: Constipation Discharge Medication List Gabapentin [Neurontin] 100 mg PO QAM 05/24/20 [History] Vortioxetine Hydrobromide [Trintellix] 10 mg PO QAM 05/24/20 [History] ALPRAZolam [Xanax] 0.5 mg PO DAILY PRN 10/01/20 [History] Omeprazole [PriLOSEC] 40 mg PO DAILY #30 capsule. 10/08/20 [Rx] Sodium, Potassium,Mag Sulfates [Suprep Bowel Prep Kit] 354 ml PO DIRECTED #1 kit 01/01/21 [Rx] Polyethylene Glycol 3350 [Miralax] 17 gm PO DAILY PRN #238 gm 01/06/21 [Rx] [facility] Patient Instructions/Handouts: *[facility] - (Anesthesia) Endoscopy Discharge Instructions, Colorectal Polyps (DC), Colonoscopy (DC) Activity/Diet/Wound Care/Special Instructions: Repeat colonoscopy 5 years, 2025 Discharge Disposition: HOME SELF-CARE
[2021-01-06 08:31] VITALS: BP 96/61; PULSE 63
== END 2021-01-06 09:00 | disposition home or self-care (01) ==
LOC: ORWHC2ENDO 07:12
PROVIDERS: ATTEND Surgery Plastic and Reconstructive Surgery
DX: K57.30 Diverticulosis of large intestine without perforation or abscess without bleeding (principal); K63.5 Polyp of colon; K64.1 Second degree hemorrhoids; K62.89 Other specified diseases of anus and rectum; Z86.718 Personal history of other venous thrombosis and embolism; K21.9 Gastro-esophageal reflux disease without esophagitis; Z98.84 Bariatric surgery status; Z87.891 Personal history of nicotine dependence; Z98.890 Other specified postprocedural states; Z90.89 Acquired absence of other organs; Z79.899 Other long term (current) drug therapy; Z88.5 Allergy status to narcotic agent
CPT/HCPCS: 81025; 88305; 45380; J2704

== ENCOUNTER → 2021-01-08 | Outpatient (CLI) | payer BC ==
[2021-01-08 13:27] VITALS: BP 132/89; PULSE 65; RESP 16; TEMP 97.9; BMI 29.8
--- NOTE | 2021-01-08 13:54 | P.PN ---
Subjective Progress Note Date: 01/08/21 DATE OF SERVICE: 01/08/2021 CHIEF COMPLAINT: Status post sleeve gastrectomy HISTORY OF PRESENT ILLNESS: Lexii Hunter is a 40-year-old female status post sleeve gastrectomy, 10/07/20. She is 3 months out. She had worsening constipation. She is status post lower endoscopy. She reports pressure along the mid-abdomen along the right upper quadrant which is exacerbated by eating fatty foods. She still has her gallbladder. She is now having bowel movements following her colonoscopy. Additionally, she reports nausea. At height of 5 feet 1.75 inches, her ideal body weight is 131 pounds. Highest weight of 225 pounds, BMI 41.6. She comes in 162 pounds from 166 pounds, 1 week ago. She has lost 4 pounds in 1 week. Her lifetime weight loss is 63 pounds. Percent excess weight loss lifetime is 67%. Her body mass index is 29.9. She is 31 pounds overweight. PHYSICAL EXAM: VITAL SIGNS: Height 5 foot 1.75 inches, weight 162 pounds. Vital Signs Temp 97.9 F 01/08/21 13:24 Pulse 65 01/08/21 13:24 Resp 16 01/08/21 13:24 BP 132/89 01/08/21 13:24 Pulse Ox GENERAL: Well-developed in no acute distress. HEENT: No scleral icterus. Extraocular movements grossly intact. Hears conversational speech. No nasal drainage. NECK: Supple without lymphadenopathy. CHEST: Nonlabored respirations with equal bilateral excursions. CARDIOVASCULAR: Regular rate and regular rhythm. Distal 2+ pulses. ABDOMEN: Soft, nontender, nondistended. MUSCULOSKELETAL: No clubbing, cyanosis. NEURO: No focal or lateralizing signs. Cranial nerves 2 through 12 grossly within normal limits. PSYCH: Appropriate affect. Alert and oriented to person, place and time. SKIN: Good skin turgor. Well perfused. COLON FINDINGS: Aronchick preparation quality scale 1 (1-5) Internal hemorrhoids, grade 2 No external prolapsed hemorrhoids. No arteriovenous malformations. Removal of 2 polyps -Cold forceps biopsy at sigmoid colon at 20 cm from the anal verge, 3-4 mm in size Mild proctitis Final Pathologic Diagnosis COLON, 20 CM, BIOPSY: Benign colonic mucosa with a prominent submucosal lymphoid aggregate, negative for significant histopathologic changes. ASSESSMENT: 1. Morbid obesity due to excess calories 2. Body mass index of 41.5, initial to 29.9 3. Osteoarthritis of the ankle. 4. Osteoarthritis of the lower back. 5. Depressive disorder 6. Gastroesophageal reflux disease 7. Past deep venous thrombosis of the arm 8. Transient ischemic attack 9. Generalized anxiety disorder 10. Depressive disorder 11. Status post sleeve gastrectomy 12. Constipation 13. Colon polyps 14. Proctitis 15. Chronic cholecystitis PLAN: 1. She has pressure along the mid-abdomen suspicious for cholecystitis. Recommend ultrasound of the gallbladder and HIDA scan. 2. Miralax prescribed for chronic constipation. 3. She reports traveling with intermittent nausea. Scopolamine patch prescribed and sent to the pharmacy Objective - Vital Signs Vital signs: Vital Signs Temp 97.9 F 01/08/21 13:24 Pulse 65 01/08/21 13:24 Resp 16 01/08/21 13:24 BP 132/89 01/08/21 13:24 Pulse Ox Intake & Output 01/07/21 01/08/21 01/08/21 18:59 06:59 18:59 Weight 73.482 kg
== END ==
LOC: BARWHC3 13:02
PROVIDERS: ATTEND Surgery Plastic and Reconstructive Surgery
DX: E66.01 Morbid (severe) obesity due to excess calories (principal); F32.9 Major depressive disorder, single episode, unspecified; K21.9 Gastro-esophageal reflux disease without esophagitis; M19.079 Primary osteoarthritis, unspecified ankle and foot; M47.816 Spondylosis without myelopathy or radiculopathy, lumbar region; K59.09 Other constipation; F41.1 Generalized anxiety disorder; K63.5 Polyp of colon; K62.89 Other specified diseases of anus and rectum; K81.1 Chronic cholecystitis; Z68.29 Body mass index [BMI] 29.0-29.9, adult; Z98.84 Bariatric surgery status; Z86.718 Personal history of other venous thrombosis and embolism; Z86.73 Personal history of transient ischemic attack (TIA), and cerebral infarction without residual deficits; Z87.891 Personal history of nicotine dependence; Z79.899 Other long term (current) drug therapy
CPT/HCPCS: 99211

== ENCOUNTER → 2021-04-09 | Outpatient (CLI) | payer BC ==
[2021-04-09 14:40] VITALS: BP 120/81; PULSE 61; RESP 18; TEMP 98.1; BMI 26.4
--- NOTE | 2021-04-09 14:56 | P.PN ---
Subjective Progress Note Date: 04/09/21 DATE OF SERVICE: 04/09/2021 CHIEF COMPLAINT: Status post sleeve gastrectomy HISTORY OF PRESENT ILLNESS: Lexii Hunter is a 41-year-old female status post sleeve gastrectomy, 10/07/20. She is 6 months out. Her BMI is 26. She has not seen her primary care provider. She reports her family is supportive of her changes. She comes in fit and is power walking. Her protein intake is over 60 grams daily. She denies gastroesophageal reflux disease. Her bowel movements have improved from constipation. She has not had any further gallbladder issues. She tolerated eating pork chops. At height of 5 feet 1.75 inches, her ideal body weight is 131 pounds. Highest weight of 225 pounds, BMI 41.6. She comes in 143 pounds from 162 pounds, 2 months ago. She has lost 19 pounds in 2 months. Her lifetime weight loss is 82 pounds. Percent excess weight loss lifetime is 88%. Her body mass index is 26.4. She is 12 pounds overweight. PHYSICAL EXAM: VITAL SIGNS: Height 5 foot 1.75 inches, weight 143 pounds. Vital Signs Temp 98.1 F 04/09/21 14:35 Pulse 61 04/09/21 14:35 Resp 18 04/09/21 14:35 BP 120/81 04/09/21 14:35 Pulse Ox GENERAL: Well-developed in no acute distress. HEENT: No scleral icterus. Extraocular movements grossly intact. Hears conversational speech. No nasal drainage. NECK: Supple without lymphadenopathy. CHEST: Nonlabored respirations with equal bilateral excursions. CARDIOVASCULAR: Regular rate and regular rhythm. Distal 2+ pulses. ABDOMEN: Soft, nontender, nondistended. MUSCULOSKELETAL: No clubbing, cyanosis. NEURO: No focal or lateralizing signs. Cranial nerves 2 through 12 grossly within normal limits. PSYCH: Appropriate affect. Alert and oriented to person, place and time. SKIN: Good skin turgor. Well perfused. STUDIES: HIDA scan report from outside institution was normal. ASSESSMENT: 1. Morbid obesity due to excess calories 2. Body mass index of 41.5, initial to 26.4 3. Osteoarthritis of the ankle. 4. Osteoarthritis of the lower back. 5. Depressive disorder 6. Gastroesophageal reflux disease 7. Past deep venous thrombosis of the arm 8. Transient ischemic attack 9. Generalized anxiety disorder 10. Depressive disorder 11. Status post sleeve gastrectomy 12. Constipation 13. Colon polyps 14. Proctitis 15. Chronic cholecystitis PLAN: 1. Recommend bariatric labs for 6 months post-op. 2. Follow-up 9 months post-op Objective - Vital Signs Vital signs: Vital Signs Temp 98.1 F 04/09/21 14:35 Pulse 61 04/09/21 14:35 Resp 18 04/09/21 14:35 BP 120/81 04/09/21 14:35 Pulse Ox Intake & Output 04/08/21 04/09/21 04/09/21 18:59 06:59 18:59 Weight 64.864 kg - Labs CBC & Chem 7: 04/09/21 15:11 04/09/21 15:11
[2021-04-09 15:39] LABS: HCT 41.1 % (34.0-46.0); HGB 13.7 gm/dL (11.4-16.0); MCH 29.5 pg (25.0-35.0); MCHC 33.4 g/dL (31.0-37.0); MCV 88.5 fL (80.0-100.0); Mean Platelet Volume 6.9; Platelet Count 234 k/uL (150-450); RBC 4.65 m/uL (3.80-5.40); RDW 12.8 % (11.5-15.5); WBC 7.4 k/uL (3.8-10.6)
[2021-04-09 15:48] LABS: INR 1.1 (<1.2); Partial Thromboplastin Time 25.6 sec (22.0-30.0); Prothrombin Time 11.4 sec (9.0-12.0)
[2021-04-10 00:14] LABS: Hemoglobin A1C 5.2 % (4.0-6.0)
[2021-04-10 01:18] LABS: % Iron Saturation 14.14 (12.00-45.00); ALT 17 U/L (8-44); AST 18 U/L (13-35); Albumin/Globulin Ratio 1.96 (1.60-3.17); Alkaline Phosphatase 59 U/L (41-126); BUN/Creat Ratio 22.86 Ratio (12.00-20.00); Calcium 9.4 mg/dL (8.7-10.3); Carbon Dioxide 26.5 mmol/L (21.6-31.8); Chloride 105 mmol/L (96-109); Chol/HDL Ratio 2.65; Cholesterol 199 mg/dL (0-200); Globulin 2.4 g/dL (1.6-3.3); Glucose 106 mg/dL (70-110); Iron 42 ug/dL (50-170); LDL Cholesterol,Calculated 112.2 mg/dL (0.0-131.0); Magnesium 1.9 mg/dL (1.5-2.4); Non-African American GFR(CKD) 106.1 (60.0-200.0); Phosphorus 3.7 mg/dL (2.4-5.1); Potassium 4.1 mmol/L (3.5-5.5); Sodium 141 mmol/L (135-145); Total Bilirubin 0.5 mg/dL (0.3-1.2); Total Iron Binding Capacity 297 ug/dL (228-460); Total Protein 7.1 g/dL (6.2-8.2)
[2021-04-10 04:29] LABS: Folate, Serum >24.0 ng/mL
[2021-04-10 13:32] LABS: Zinc, Serum 63 ug/dL (60-130)
[2021-04-11 09:02] LABS: Vitamin A 41 ug/dL (38-106)
[2021-04-11 09:07] LABS: Vit B1(Thiamine) 65 ug/L (38-122)
[2021-04-16 17:09] LABS: Selenium 117 mcg/L (63-160)
== END ==
LOC: BARWHC3 14:29
PROVIDERS: ATTEND Surgery Plastic and Reconstructive Surgery
DX: E66.01 Morbid (severe) obesity due to excess calories (principal); F32.9 Major depressive disorder, single episode, unspecified; F41.1 Generalized anxiety disorder; G45.9 Transient cerebral ischemic attack, unspecified; K21.9 Gastro-esophageal reflux disease without esophagitis; K59.00 Constipation, unspecified; K81.1 Chronic cholecystitis; K62.89 Other specified diseases of anus and rectum; K63.5 Polyp of colon; Z98.84 Bariatric surgery status; M19.079 Primary osteoarthritis, unspecified ankle and foot; M47.9 Spondylosis, unspecified; Z68.26 Body mass index [BMI] 26.0-26.9, adult
CPT/HCPCS: 36415; 80053; 80061; 82306; 82525; 82607; 82728; 82746; 83036; 83540; 83550; 83735; 83970; 84100; 84134; 84255; 84425; 84443; 84590; 84630; 85027; 85610; 85730; 99211